=== PATIENT | male | born 1970 | race Hispanic/Latino ===

== ENCOUNTER 2017-12-29 17:07 | Emergency (ER) | payer SELFPAY ==
[2017-12-29] MEDS ORDERED: DiphenhydrAMINE HCL 50 MG/ML VIAL ONE (17:38)
[2017-12-29] MEDS ORDERED: EPINEPHRINE 1 MG/ML AMPULE ONE (17:38)
[2017-12-29] MEDS ORDERED: SODIUM CHLORIDE 0.9% 1000ML 1,000 ML IV ONE (17:39)
[2017-12-29] MEDS ORDERED: METHYLPREDNISOLONE SOD SUCC 125MG/2ML VIAL ONE (17:39)
[2017-12-29] MEDS ORDERED: FAMOTIDINE/PF 20 MG/2 ML VIAL IV ONE (17:39)
== END 2017-12-29 19:34 | disposition home or self-care (01) ==
LOC: EDH 17:07
DX: T78.40XA Allergy, unspecified, initial encounter (principal); I10 Essential (primary) hypertension; Z88.0 Allergy status to penicillin; Z87.898 Personal history of other specified conditions; Z87.891 Personal history of nicotine dependence; X58.XXXA Exposure to other specified factors, initial encounter
CPT/HCPCS: 96372; 96374; 96375; 99284; J0171; J1200; J2930; J3490; J7030

== ENCOUNTER 2018-03-29 19:17 | Emergency (ER) | payer OTHER ==
[2018-03-29] MEDS ORDERED: DiphenhydrAMINE HCL 50 MG/ML VIAL ONE (19:47)
[2018-03-29] MEDS ORDERED: DEXAMETHASONE SOD PHOSPHATE 10MG/ML 1ML VIAL ONE (19:47)
[2018-03-29] MEDS ORDERED: SODIUM CHLORIDE 0.9% 500ML 500 ML IV ONE (19:48)
== END 2018-03-29 21:14 | disposition home or self-care (01) ==
LOC: EDH 19:17
DX: T78.49XA Other allergy, initial encounter (principal); I10 Essential (primary) hypertension; Z88.0 Allergy status to penicillin; Z91.010 Allergy to peanuts; Z87.891 Personal history of nicotine dependence; Z79.899 Other long term (current) drug therapy; X58.XXXA Exposure to other specified factors, initial encounter
CPT/HCPCS: 96374; 96375; 99284; J1100; J1200; J7040

== ENCOUNTER 2020-09-20 19:27 | Emergency (ER) | payer SELFPAY ==
[2020-09-20] MEDS ORDERED: PREDNISONE 20 MG TABLET ONE (20:27)
[2020-09-20] MEDS ORDERED: DiphenhydrAMINE HCL 50 MG/ML VIAL ONE (20:27)
== END 2020-09-20 20:33 | disposition home or self-care (01) ==
LOC: EDH 19:27
DX: L50.0 Allergic urticaria (principal); E11.9 Type 2 diabetes mellitus without complications; I10 Essential (primary) hypertension; E78.00 Pure hypercholesterolemia, unspecified; I25.2 Old myocardial infarction; Z88.0 Allergy status to penicillin; Z91.010 Allergy to peanuts; Z79.899 Other long term (current) drug therapy
CPT/HCPCS: 96372; 99283; J1200

== ENCOUNTER 2020-10-10 21:55 | Emergency (ER) | payer SELFPAY ==
[2020-10-10] MEDS ORDERED: FAMOTIDINE 20MG TAB 20 MG TAB ONE (22:10)
[2020-10-10] MEDS ORDERED: DIPHENHYDRAMINE HCL 25 MG CAPSULE ONE (22:11)
[2020-10-10] MEDS ORDERED: METHYLPREDNISOLONE SOD SUCC 125MG/2ML VIAL ONE (22:22)
== END 2020-10-10 23:07 | disposition home or self-care (01) ==
LOC: EDH 21:55
DX: L50.9 Urticaria, unspecified (principal); E11.9 Type 2 diabetes mellitus without complications; I10 Essential (primary) hypertension; I25.2 Old myocardial infarction; Z88.0 Allergy status to penicillin; Z91.010 Allergy to peanuts
CPT/HCPCS: 82948; 96372; 99283; J2930; Q0163

== ENCOUNTER 2022-03-16 18:34 | Emergency (ER) | payer OTHER ==
[~2022-03-16] VITALS: Ht 170.2 cm; Wt 113.4 kg
[~2022-03-16 18:34] MED LIST: PRED20TA3 PO
[2022-03-16 18:40] VITALS: BP 176/87
[2022-03-16] MEDS ORDERED: SOLU-MEDROL 125MG VIAL IVP ONE (20:30)
[2022-03-16] MEDS ORDERED: DiphenhydrAMINE HCL 50 MG/ML VIAL IV ONE (20:30)
[2022-03-16] MEDS ORDERED: FAMOTIDINE 20MG VIAL IV ONE (20:30)
[2022-03-16] MEDS ORDERED: 0.9%NACL 1000ML 1,000 ML IV ONE (20:30)
[2022-03-16] MEDS ORDERED: FAMO-136 PO (22:19)
[2022-03-16] MEDS ORDERED: PRED20TA3 PO (22:19)
[2022-03-16] MEDS ORDERED: DIPH25 PO (22:19)
== END 2022-03-16 22:29 | disposition home or self-care (01) ==
LOC: EDH 18:34
DX: T78.40XA Allergy, unspecified, initial encounter (principal); E11.9 Type 2 diabetes mellitus without complications; I10 Essential (primary) hypertension; I25.2 Old myocardial infarction; Z88.0 Allergy status to penicillin; Z91.010 Allergy to peanuts; Z79.899 Other long term (current) drug therapy; X58.XXXA Exposure to other specified factors, initial encounter
CPT/HCPCS: 99284; 96374; 96375; 96361; J1200; J3490; J7030; J2930

== ENCOUNTER 2022-07-17 14:40 | Emergency (ER) | payer OTHER ==
[~2022-07-17] VITALS: Ht 170.2 cm; Wt 108.9 kg
[~2022-07-17 14:40] MED LIST changes: +DIPH-1242 PO; +FAMO-136 PO; +LORA10TA7 PO; +PANT40TA55 PO; +PRED5TAB PO
[2022-07-17] MEDS ORDERED: LABETALOL HCL 100 MG TABLET PO ONE (17:30)
[2022-07-17 18:00] VITALS: BP 162/92
== END 2022-07-17 18:06 | disposition home or self-care (01) ==
LOC: EDH 14:45
DX: B34.9 Viral infection, unspecified (principal); Z20.822 Contact with and (suspected) exposure to COVID-19
CPT/HCPCS: 99283; 87635; 87804 ×2; C9803

== ENCOUNTER 2022-10-28 22:04 | Emergency (ER) | payer OTHER ==
[~2022-10-28] VITALS: Ht 170.2 cm; Wt 113.4 kg
[2022-10-28 22:36] LABS: BASOPHILS % (AUTO) 0.5 % (0.0-5.0); EOSINOPHILS % (AUTO) 3.2 % (0.0-8.0); HEMATOCRIT 47.7 % (42-54); LYMPHOCYTES % (AUTO) 21.3 % (21.0-51.0); MEAN CORPUSCULAR HEMOGLOBIN 33.7 pg (27.0-33.0); MEAN CORPUSCULAR HGB CONC 34.6 g/dL (32.0-36.0); MEAN CORPUSCULAR VOLUME 97.3 fL (79-99); MONOCYTES % (AUTO) 8.4 % (3.0-13.0); NEUTROPHILS % (AUTO) 66.5 % (40.0-77.0); PLATELET COUNT (AUTO) 195 K/uL (130-400); RED CELL DISTRIBUTION WIDTH 13.1 % (11.0-15.5); WHITE BLOOD COUNT (AUTO) 8.2 K/uL (4.8-10.8)
[2022-10-28 22:43] LABS: APPEARANCE,URINE CLEAR (CLEAR); BILIRUBIN,URINE NEGATIVE (NEGATIVE); COLOR,URINE YELLOW (YELLOW); GLUCOSE, URINE (UA) NEGATIVE (NEGATIVE); KETONES,URINE 10 mg/dL (NEGATIVE); LEUKOCYTE ESTERASE ,URINE NEGATIVE Leu/uL (NEGATIVE); NITRATE,URINE NEGATIVE (NEGATIVE); OCCULT BLOOD,URINE NEGATIVE (NEGATIVE); PH,URINE 5.5 (5.0-8.0); PROTEIN,URINE 10 mg/dL (NEGATIVE); UROBILINOGEN,URINE 0.2 mg/dL (0.2-1.0)
[2022-10-28 22:45] LABS: CREATININE 0.9 mg/dL (0.5-1.5); POTASSIUM 3.4 mmol/L (3.5-5.1)
[2022-10-28 22:55] LABS: ALBUMIN 3.6 g/dL (3.5-5.0); TOTAL PROTEIN, SERUM 7.2 g/dL (6.0-8.3)
[2022-10-28 23:05] LABS: BACTERIA,URINE RARE /HPF (None Seen); MUCUS,URINE RARE LPF (None Seen); RBC,URINE 0-1 /HPF (0-1); SQUAMOUS EPITHELIAL CELL,UR RARE /HPF (0-2)
[2022-10-29 00:41] VITALS: BP 152/82
== END 2022-10-29 02:03 | disposition home or self-care (01) ==
LOC: EDH 22:04
DX: I10 Essential (primary) hypertension (principal); R07.89 Other chest pain; E11.9 Type 2 diabetes mellitus without complications; Z79.52 Long term (current) use of systemic steroids; Z88.0 Allergy status to penicillin; Z91.010 Allergy to peanuts
CPT/HCPCS: 36415; 71045; 80053; 81001; 84484; 85025; 93005

== ENCOUNTER 2022-11-15 03:30 | Emergency (ER) | payer OTHER ==
[~2022-11-15] VITALS: Ht 170.2 cm; Wt 113.4 kg
[2022-11-15] MEDS ORDERED: MORPHINE 4 MG SYG IM ONE (04:30)
[2022-11-15] MEDS ORDERED: ACETAMINOPHEN 500 MG TABLET PO ONE (04:30)
[2022-11-15] MEDS ORDERED: LIDOCAINE 5% TOPICAL PATCH TP ONE (04:30)
[2022-11-15] MEDS ORDERED: NIFEDIPINE 10 MG CAP PO ONE (06:00)
[2022-11-15] MEDS ORDERED: IBUP-2070 PO (06:33)
[2022-11-15] MEDS ORDERED: ACET-2079 PO (06:33)
[2022-11-15 06:36] LABS: BASOPHILS % (AUTO) 0.7 % (0.0-5.0); EOSINOPHILS % (AUTO) 6.8 % (0.0-8.0); HEMATOCRIT 52.9 % (42-54); LYMPHOCYTES % (AUTO) 31.5 % (21.0-51.0); MEAN CORPUSCULAR HEMOGLOBIN 33.3 pg (27.0-33.0); MEAN CORPUSCULAR HGB CONC 33.1 g/dL (32.0-36.0); MEAN CORPUSCULAR VOLUME 100.8 fL (79-99); MONOCYTES % (AUTO) 9.1 % (3.0-13.0); NEUTROPHILS % (AUTO) 51.5 % (40.0-77.0); PLATELET COUNT (AUTO) 259 K/uL (130-400); RED BLOOD CELL COUNT(AUTO) 5.25 MIL/uL (4.50-6.20); WHITE BLOOD COUNT (AUTO) 7.7 K/uL (4.8-10.8)
[2022-11-15 06:51] LABS: ALBUMIN 3.8 g/dL (3.5-5.0); POTASSIUM 3.8 mmol/L (3.5-5.1); TOTAL PROTEIN, SERUM 7.8 g/dL (6.0-8.3)
[2022-11-15 06:58] VITALS: BP 161/87
[2022-11-15] MEDS ORDERED: MORPHINE 2 MG SYG IVP ONE (07:00)
== END 2022-11-15 07:45 | disposition home or self-care (01) ==
LOC: EDH 03:30
DX: G58.8 Other specified mononeuropathies (principal); M54.50 Low back pain, unspecified; I16.0 Hypertensive urgency; E11.9 Type 2 diabetes mellitus without complications; Z79.899 Other long term (current) drug therapy; Z88.0 Allergy status to penicillin; Z91.010 Allergy to peanuts
CPT/HCPCS: 99284; 96374; 84484; 80053; 85025; 36415; 93005; 96372; J2270

== ENCOUNTER 2023-10-11 02:02 | Emergency (ER) | payer OTHER ==
[~2023-10-11] VITALS: Ht 170.2 cm; Wt 125.6 kg
[~2023-10-11 02:02] MED LIST changes: +ACET-2079 PO; +IBUP-2070 PO
[2023-10-11 02:27] LABS: BASOPHILS # (AUTO) 0.03 K/uL (0.00-0.20); BASOPHILS % (AUTO) 0.2 % (0.0-5.0); EOSINOPHILS # (AUTO) 0.15 K/uL (0.00-0.70); HEMATOCRIT 36.5 % (42-54); IMMATURE GRANULOCYTE ABSOLUTE 0.08 K/uL (0-1); LYMPHOCYTES # (AUTO) 1.4 K/uL (1.0-4.8); LYMPHOCYTES % (AUTO) 9.2 % (21.0-51.0); MEAN CORPUSCULAR HGB CONC 33.7 g/dL (32.0-36.0); MEAN CORPUSCULAR VOLUME 95.1 fL (79-99); MONOCYTES # (AUTO) 1.3 K/uL (0.1-1.0); MONOCYTES % (AUTO) 8.3 % (3.0-13.0); NEUTROPHILS # (AUTO) 12.3 K/uL (1.8-7.7); NEUTROPHILS % (AUTO) 80.8 % (40.0-77.0); PLATELET COUNT (AUTO) 218 K/uL (130-400); RED BLOOD CELL COUNT(AUTO) 3.84 MIL/uL (4.50-6.20); RED CELL DISTRIBUTION WIDTH 13.2 % (11.0-15.5); WHITE BLOOD COUNT (AUTO) 15.2 K/uL (4.8-10.8)
[2023-10-11 02:32] LABS: RAPID GROUP A STREP negative (NEGATIVE)
[2023-10-11 02:33] LABS: CREATININE 1.3 mg/dL (0.5-1.3); POTASSIUM 4.1 mmol/L (3.5-5.1)
[2023-10-11 02:38] LABS: APPEARANCE,URINE CLEAR (CLEAR); BILIRUBIN,URINE NEGATIVE (NEGATIVE); COLOR,URINE YELLOW (YELLOW); GLUCOSE, URINE (UA) NEGATIVE (NEGATIVE); KETONES,URINE NEGATIVE (NEGATIVE); LEUKOCYTE ESTERASE ,URINE NEGATIVE Leu/uL (NEGATIVE); NITRATE,URINE NEGATIVE (NEGATIVE); OCCULT BLOOD,URINE NEGATIVE (NEGATIVE); PH,URINE 5.5 (5.0-8.0); PROTEIN,URINE 20 mg/dL (NEGATIVE)
[2023-10-11 02:38] LABS: ALBUMIN 3.2 g/dL (3.5-5.0); BILIRUBIN,TOTAL 0.5 mg/dL (0.2-1.0); TOTAL PROTEIN, SERUM 7.6 g/dL (6.0-8.3)
[2023-10-11 02:39] LABS: SARS-CoV-2, RNA, NAAT NEGATIVE SARS CoV-2 (NEGATIVE)
[2023-10-11 02:39] LABS: ADD UA MICROSCOPIC YES
[2023-10-11 02:42] LABS: INFLUENZA TYPE A Negative For Type A (NEGATIVE); INFLUENZA TYPE B Negative For Type B (NEGATIVE)
[2023-10-11 02:45] LABS: BACTERIA,URINE FEW /HPF (None Seen); MUCUS,URINE RARE LPF (None Seen); RBC,URINE 0-1 /HPF (0-1); SQUAMOUS EPITHELIAL CELL,UR RARE /HPF (0-2)
[2023-10-11] MEDS: DIPHENHYDRAMINE HCL 25 MG CAPSULE PO ONE (02:54)
[2023-10-11 02:55] VITALS: PULSE 85; RESP 18
[2023-10-11] MEDS: IPRATROPIUM/ALBUTEROL SULFATE 3 ML SOLUTION IH ONE (02:55)
[2023-10-11] MEDS ORDERED: IBUP-1493 PO (03:58)
[2023-10-11] MEDS ORDERED: LORA-868 PO (03:58)
[2023-10-11] MEDS ORDERED: ALBUHFA IH (03:58)
[2023-10-11] MEDS ORDERED: ACET-66 PO (03:58)
[2023-10-11] MEDS ORDERED: NAPHAOS OD (03:58)
[2023-10-11 04:03] VITALS: BP 142/82; PULSE 92; RESP 20; O2SAT 98
== END 2023-10-11 04:05 | disposition home or self-care (01) ==
LOC: EDH 02:02
DX: B34.9 Viral infection, unspecified (principal); I10 Essential (primary) hypertension; E11.9 Type 2 diabetes mellitus without complications; E78.00 Pure hypercholesterolemia, unspecified; Z20.822 Contact with and (suspected) exposure to COVID-19; Z79.899 Other long term (current) drug therapy; Z88.0 Allergy status to penicillin; Z98.890 Other specified postprocedural states; Z91.010 Allergy to peanuts
CPT/HCPCS: 99284; 71045; 87635; 80053; 85025; 87880; 87804 ×2; 81001; 36415; 94640; Q0163

== ENCOUNTER 2024-06-27 10:12 | Emergency (ER) | payer SELFPAY ==
[~2024-06-27] VITALS: Ht 170.2 cm; Wt 140.6 kg
[~2024-06-27 10:12] MED LIST changes: +ACET-66 PO; +ALBUHFA IH; +IBUP-1493 PO; +LORA-868 PO; +NAPHAOS OD
--- NOTE | 2024-06-27 10:47 | ERN ---
ED Note History of Present Illness Stated Complaint: ALLERGIC REACTION Chief Complaint: Allergic Reaction Time Seen by MD: 10:13 Dictation: Patient is a 54-year-old male with a past medical history of hypercholesterolemia, hypertension, diabetes type 2, anxiety, and depression who presents to the ED due to an allergic reaction from exposure to peanuts. This is a known allergy that the patient usually manages with prednisone but he did not have any at home. Patient has generalized hives but denies any chest pain, shortness of breath, nausea, or vomiting. Patient denies any difficulty swallowing or pressure. Allergies: Coded Allergies: Penicillins (Unverified Allergy, Unknown, 08/17/13) peanut (Unverified Allergy, Unknown, 09/20/20) Home Meds Active Scripts Naphazoline HCl/Phenir Mal (Naphcon-A Ophth Soln) 0.025 %-0.3 % Opsol, 2 DROP OD Q4HPRN PRN for drainage, #1 BOTTLE Prov:MIRNA BURGOS MD 10/11/23 Albuterol Sulfate (Ventolin Hfa/Proventil Hfa/Proair Hfa) 90 Mcg Puff, 2 PUFF IH Q4H PRN for cough/congestion, #1 INH Prov:MIRNA BURGOS MD 10/11/23 Ibuprofen (Motrin/Advil) 800 Mg Tab, 800 MG PO Q6HPRN PRN for fever/pain, #15 TAB Prov:MIRNA BURGOS MD 10/11/23 Loratadine/Pseudoephedrine (Claritin-D 24 Hour Tablet) 10 Mg-240 Mg Tab.er.24h, 1 EACH PO DAILY, #10 TAB Prov:MIRNA BURGOS MD 10/11/23 Acetaminophen (Acetaminophen) 500 Mg Tablet, 1000 MG PO Q6HPRN PRN for fever/ pain, #30 TAB Prov:MIRNA BURGOS MD 10/11/23 Acetaminophen with Codeine (Acetaminophen-Cod #3 Tablet) 1 Each Tablet, 1 TAB PO Q6H PRN for SEVERE PAIN (7-10), #15 TAB Prov:COURTNEY ALEXANDER MD 11/15/22 Ibuprofen (Ibuprofen) 600 Mg Tablet, 600 MG PO Q6H PRN for PAIN, #30 TAB Prov:COURTNEY ALEXANDER MD 11/15/22 Loratadine (Loratadine) 10 Mg Tablet, 10 MG PO DAILY for 30 Days, #30 TAB Prov:ANGELICA HUNG MD 03/30/22 Pantoprazole Sodium (Protonix) 40 Mg Ectab, 40 MG PO DAILY for 30 Days, #30 TAB.EC Prov:ANGELICA HUNG MD 03/30/22 Prednisone (Prednisone) 5 Mg Tablet, 5 MG PO BID for 7 Days, #14 TAB Prov:ANGELICA HUNG MD 03/30/22 Famotidine (Pepcid) 20 Mg Tablet, 20 MG PO BID, #30 TAB Prov:ANTONINO ROBLEDO 03/16/22 Diphenhydramine HCl (Benadryl) 25 Mg Cap, 25 MG PO Q6HPRN PRN for RASH, #30 CAP Prov:ANTONINO ROBLEDO 03/16/22 Prednisone (Prednisone) 20 Mg Tablet, 1 TAB PO AD for 6 Days, #14 TAB 0 Refills TAKE 1 TAB BY MOUTH THREE TIMES PER DAY X3 DAYS, THEN TAKE 1 TAB BY MOUTH TWICE A DAY X2 DAYS, THEN TAKE 1 TAB BY MOUTH ONCE A DAY X1 DAY. Prov:ANTONINO ROBLEDO 03/16/22 Prednisone (Prednisone) 20 Mg Tablet, 1 TAB PO AD for 3 Days, #6 TAB 0 Refills TAKE 1 TAB BY MOUTH BID for up to 3 days. Stop when hives resolve Prov:VAN DAVIDSON MD 07/30/21 Past Medical History Past Medical History: Anxiety, Depression, Diabetes-Type II, High Cholesterol, Hypertension Additional Past Medical Hx: COLITIS Surgical History: None Surgical History Other: HEART CATH Family History: HTN Social History: ETOH, Lives with family Review of System Dictation Constitutional-no chills, weight loss/gain, fever Eyes-no injury, pain, redness and discharge ENT-no injury, pain, swelling Cardiovascular no chest pain, palpitations, edema Respiratory no shortness of breath, cough, wheezing Abdomen/GI-no abdominal pain, diarrhea, constipation, vomiting, nausea Back no injury and pain Genitourinary no injury, bleeding and discharge Musculoskeletal/extremities no injury, deformity Skin no rash, discoloration. Generalized itching due to hives Neuro-no headache, weakness, numbness, tingling, seizures, tremors Psych-no suicidal ideation, homicidal ideation, hallucinations, depression, anxiety, memory loss Initial Vital Sign VS Vital Signs Date Time Temp Pulse Resp B/P (MAP) Pulse Ox O2 Delivery O2 Flow Rate FiO2 06/27/24 10:12 99.1 84 20 184/114 97 Room Air 0 Physical Exam Dictation VITAL SIGNS: Reviewed. GENERAL APPEARANCE: Alert, oriented x3, no acute distress, obese. HEAD AND FACE: Non-traumatic. EYES: PERRL, pink conjunctivas, eyelid no trauma, anterior chamber clear. EARS: Pinnas intact and no signs of trauma or erythema. Ear canals clear and no discharge. TMs no erythema. NOSE: No discharge, no bleeding. OROPHARYNX: Mouth normal, teeth no caries, tongue pink. Pharynx clear, no erythema. Tonsils no exudates, no abscesses noted. Mucous membrane moist. NECK: Supple, non-tender, no thyromegaly, no masses, no JVD, no bruits. BREAST: Deferred. CHEST: No tenderness, no crepitus, no paradoxical movement, no retractions. LUNGS: Clear, well-ventilated, symmetric, no rales, no wheezing, no rhonchi, no stridor, good breath sounds bilaterally. HEART: Regular rate, regular rhythm, no murmur, no gallops. VASCULAR: No peripheral edema. ABDOMEN: Soft, positive bowel sounds, nondistended, no guarding, nontender, no rebound, no masses no hepatomegaly, no splenomegaly, no Caldwell's sign, no hernias. RECTAL: Swelling, lesion, possible pilonidal cyst GENITAL: Deferred. NEUROLOGICAL: Normal speech, gross motor function intact, gross sensory function intact. MUSCULOSKELETAL: Neck nontender, full range of motion, back nontender, full range of motion. EXTREMITIES: Nontender, full range of motion. SKIN: Color pink, dry, no turgor, no rash, no lacerations, no abrasions, no contusions. Urticaria on bilateral armpits, chest. LYMPHATICS: Deferred. ED Course ED Course Orders Procedure Category Date Status Time Methylprednisolone PHA 06/27/24 Complete Succ 125mg (Solu-Medr 11:00 Famotidine 20mg Vial PHA 06/27/24 Complete (Pepcid 20mg Vial) 11:00 0.9% Nacl 500ml PHA 06/27/24 In Process Iv.Soln (Ns 500ml 11:00 Methylprednisolone PHA 06/27/24 Complete Succ 125mg (Solu-Medr 12:30 Current Medications Medications (Trade) Dose Ordered Sig/Grecia Route PRN Reason Start Time Stop Time Status Last Admin Dose Admin Famotidine (Pepcid 20mg Vial) 20 mg ONCE ONCE IV 06/27/24 11:00 06/27/24 11:01 DC 06/27/24 12:28 Methylprednisolone Sodium Succinate (Solu-medROL 125MG) 125 mg ONCE ONCE IVP 06/27/24 11:00 06/27/24 10:37 DC Methylprednisolone Sodium Succinate (Solu-medROL 125MG) 125 mg ONCE ONCE IVP 06/27/24 12:30 06/27/24 12:31 DC 06/27/24 12:32 Sodium Chloride 660 ml @ 220 mls/hr ONCE ONCE IV 06/27/24 11:00 06/27/24 13:59 06/27/24 12:28 Vital Signs Date Time Temp Pulse Resp B/P (MAP) Pulse Ox O2 Delivery O2 Flow Rate FiO2 06/27/24 10:12 99.1 84 20 184/114 97 Room Air 0 Medical Decision Making MDM MDM INITIAL IMPRESSION Initial history and physical concerning for allergic reaction due from exposure to peanuts Contributing medical problems: History of peanut allergy I have reviewed the triage nursing notes and vital signs. Initial plan: Monitoring of symptoms DATA REVIEW I have reviewed additional NN, repeat VS, and monitoring where indicated. Heart rate, blood pressure, and O2 saturation are acceptable. ED COURSE Interventions: Steroid, fluids, Pepcid Reassessment: DISPOSITION Final diagnostic impression: allergic reaction due from exposure to peanuts I discussed my findings, clinical impression and treatment recommendations with the patient. My final plan for disposition was made based upon -mild risk of complications and potential morbidity of the patient's condition. -Discussion with the patient regarding management options. Patient will be discharged and advised to follow up with PCP as needed DX & DISP Disposition: Discharge Departure Impression: Primary Impression: Acute allergic reaction Additional Impression: Acute urticaria Condition: Stable Scripts Prednisone (Prednisone) 5 Mg Tab.ds.pk 0 PO AD for 6 Days, #48 TAB 0 Refills 6 day dose pack taper Prov: ANGELICA HUNG MD 06/27/24 Additional Instructions: FOLLOW-UP WITH PRIMARY CARE PROVIDER IN 1 TO 2 DAYS. TAKE MEDICATIONS DIRECTED HERE IN THE EMERGENCY ROOM. OKAY TO CONTINUE HOME MEDICATIONS UNLESS OTHERWISE DISCUSSED DURING YOUR VISIT IN THE EMERGENCY ROOM TODAY. RETURN TO YOUR NEAREST EMERGENCY ROOM IF SYMPTOMS WORSEN OR IF THERE IS NO IMPROVEMENT. CALL 911 IF YOU NEED IMMEDIATE ASSISTANCE. TAKE TYLENOL [id number] NEEDED AND IF NO CONTRAINDICATIONS ARE PRESENT. INCREASE ORAL HYDRATION. A WOUND CULTURE OR URINE CULTURE WAS ORDERED HERE IN THE EMERGENCY ROOM DEPARTMENT PLEASE FOLLOW-UP WITH PRIMARY CARE PROVIDER AND ADVISE THEM TO GET REPEAT PORTS FROM OUR FACILITY. IF YOU HAD ANY BIBI WRAP/SPLINTS THAT WERE APPLIED HERE, PLEASE DO NOT REMOVE THEM UNTIL YOU SEE YOUR PRIMARY CARE OR SPECIALTY. Referrals: Referrals: SELF,REFERRAL (PCP) ANH WILLSON MD Time of Disposition: 12:36 I have reviewed I have reviewed the case I was present and participated in the care of this patient alongside the resident physician. I have reviewed and personally made and improve the management plan that is documented in the note by myself or the resident physician. I acknowledge full responsibility for the patient's management plan. I have examined patient I personally scribed for ANGELICA HUNG MD ([email or web address]) on 06/27/24 at 12:36. Electronically submitted by Yecenia Ellis ([email or web address]). ISAAK AMADO MD Jun 27, 2024 10:47 ANGELICA HUNG MD Jun 27, 2024 12:36
[2024-06-27] MEDS ORDERED: Solu-medROL 125MG VIAL IVP ONE (11:00)
[2024-06-27] MEDS: FAMOTIDINE 20MG VIAL IV ONE (12:28)
[2024-06-27] MEDS: NACL IV ONE (12:28)
[2024-06-27] MEDS: Solu-medROL 125MG VIAL IVP ONE (12:32)
[2024-06-27 12:54] VITALS: BP 180/90; PULSE 80; RESP 20; TEMP 98.3; O2SAT 98
[2024-06-27] MEDS ORDERED: PRED5TAB44 PO (12:57)
== END 2024-06-27 13:04 | disposition home or self-care (01) ==
LOC: EDH 10:12
DX: T78.40XA Allergy, unspecified, initial encounter (principal); L50.9 Urticaria, unspecified; E11.9 Type 2 diabetes mellitus without complications; E78.00 Pure hypercholesterolemia, unspecified; I10 Essential (primary) hypertension; Z79.52 Long term (current) use of systemic steroids; Z79.899 Other long term (current) drug therapy; Z88.0 Allergy status to penicillin; Z91.010 Allergy to peanuts; Z20.822 Contact with and (suspected) exposure to COVID-19; X58.XXXA Exposure to other specified factors, initial encounter
CPT/HCPCS: 99284; 96374; 96361; 96375; J7040; J3490; J2919

== ENCOUNTER 2024-07-11 21:22 | Emergency (ER) | payer SELFPAY ==
[~2024-07-11] VITALS: Ht 170.2 cm; Wt 136.1 kg
[~2024-07-11 21:22] MED LIST changes: +PRED5TAB44 PO
--- NOTE | 2024-07-11 21:46 | EKG ---
[facility] Test Date: 2024-07-11 Test Time: 21:40:10 Pat Name: DIONICIO BUITRAGO Department: ED Room: Gender: Security Installer: [facility] : 1970 Requested By: NING PETER Order Number: [id number] Reading MD: Enrike Lebron Measurements Intervals [place] [facility] Rate: 87 P: 60 GA: 142 QRS: 111 QRSD: 111 T: 24 QT: 376 QTc: 452 Interpretive Statements Sinus rhythm Compared to ECG 11/15/2022 05:59:59 No significant changes Electronically Signed On 07-13-2024 12:16:06 TEXTILE BAG SEWER by Enrike Lebron Please click the below link to view image of tracing.
[2024-07-11] MEDS: ondanSETRON 4MG INJ IVP ONE (21:55)
[2024-07-11] MEDS: hydrALAZine 20MG/ML VIAL IV ONE ×2 (21:55→22:43)
--- NOTE | 2024-07-11 22:06 | HMCIMG ---
CHEST 1VW CLINICAL HISTORY: sob COMPARISON: 10/11/2023 TECHNIQUE: Single view of the chest was obtained. FINDINGS: Lungs are clear. The cardiac size and mediastinum are unremarkable. The bony structures are within normal limits. IMPRESSION: No acute cardiopulmonary process identified.
[2024-07-11 22:14] LABS: BASOPHILS # (AUTO) 0.01 K/uL (0.00-0.20); BASOPHILS % (AUTO) 0.1 % (0.0-5.0); EOSINOPHILS # (AUTO) 0.19 K/uL (0.00-0.70); HEMATOCRIT 42.2 % (42-54); IMMATURE GRANULOCYTE ABSOLUTE 0.03 K/uL (0-1); LYMPHOCYTES # (AUTO) 1.5 K/uL (1.0-4.8); LYMPHOCYTES % (AUTO) 16.2 % (21.0-51.0); MEAN CORPUSCULAR HEMOGLOBIN 32.3 pg (27.0-33.0); MEAN CORPUSCULAR HGB CONC 34.4 g/dL (32.0-36.0); MONOCYTES # (AUTO) 0.7 K/uL (0.1-1.0); MONOCYTES % (AUTO) 6.9 % (3.0-13.0); NEUTROPHILS # (AUTO) 7.1 K/uL (1.8-7.7); NEUTROPHILS % (AUTO) 74.5 % (40.0-77.0); PLATELET COUNT (AUTO) 228 K/uL (130-400); RED BLOOD CELL COUNT(AUTO) 4.49 MIL/uL (4.50-6.20); RED CELL DISTRIBUTION WIDTH 13.5 % (11.0-15.5); WHITE BLOOD COUNT (AUTO) 9.5 K/uL (4.8-10.8)
[2024-07-11 22:22] LABS: CREATININE 1.3 mg/dL (0.5-1.3); POTASSIUM 3.8 mmol/L (3.5-5.1)
[2024-07-11 22:24] LABS: INR 0.99 (0.85-1.15); PROTHROMBIN TIME 11.1 SEC (9.6-11.6)
[2024-07-11 22:25] LABS: PARTIAL THROMBOPLASTIN TIME 26.8 SEC (26.3-35.5)
--- NOTE | 2024-07-11 22:34 | HMCIMG ---
CT HEAD/BRAIN W/O CONTRAST HISTORY: Headaches COMPARISON: None TECHNIQUE: Multiple sequential axial images of the head were obtained from the base of the skull through vertex. Patient was not given contrast through intravenous route. FINDINGS: The ventricles and extraventricular CSF spaces are nondilated for patient's age. There is no midline shift, mass effect or herniation. No acute intracranial bleed is seen. Visualized portion of the paranasal sinuses are grossly within normal limits. IMPRESSION: 1. No acute intracranial bleed is seen. CT was performed with one or more following dose reduction techniques: automated exposure control, adjustment of the mA and kv according to patient's size, or use of a iterative reconstruction technique.
[2024-07-11 22:36] LABS: B-TYPE NATRIURETIC PEPTIDE 11 pg/mL (0-100)
[2024-07-12] MEDS ORDERED: LOSA1TAB42 PO (00:34)
--- NOTE | 2024-07-12 00:35 | ERN ---
ED Note History of Present Illness Stated Complaint: SOB,HIGH BLOOD PRESSURE Chief Complaint: Hypertension Time Seen by MD: 21:24 Time Seen by Midlevel: 21:24 Dictation: The patient is a 54-year-old male who presents to the emergency department with complaints of elevated blood pressure, shortness of breath onset today. Patient reports he ran out of his blood pressure medication on Tuesday and has not taken it since. Reports nausea, palpitations. Denies any vomiting, chest pain other complaints. Allergies: Coded Allergies: Penicillins (Unverified Allergy, Unknown, 08/17/13) peanut (Unverified Allergy, Unknown, 09/20/20) Home Meds Active Scripts Losartan/Hydrochlorothiazide (Losartan-Hctz 100-12.5 mg Tab) 100 Mg-12.5 Mg Tablet, 1 TAB PO DAILY for 30 Days, #30 TAB 0 Refills Prov:NING PETER HYDRAULIC ASSEMBLER 07/12/24 Prednisone (Prednisone) 5 Mg Tab.ds.pk, 0 PO AD for 6 Days, #48 TAB 0 Refills 6 day dose pack taper Prov:ANGELICA HUNG MD 06/27/24 Naphazoline HCl/Phenir Mal (Naphcon-A Ophth Soln) 0.025 %-0.3 % Opsol, 2 DROP OD Q4HPRN PRN for drainage, #1 BOTTLE Prov:MIRNA BURGOS MD 10/11/23 Albuterol Sulfate (Ventolin Hfa/Proventil Hfa/Proair Hfa) 90 Mcg Puff, 2 PUFF IH Q4H PRN for cough/congestion, #1 INH Prov:MIRNA BURGOS MD 10/11/23 Ibuprofen (Motrin/Advil) 800 Mg Tab, 800 MG PO Q6HPRN PRN for fever/pain, #15 TAB Prov:MIRNA BURGOS MD 10/11/23 Loratadine/Pseudoephedrine (Claritin-D 24 Hour Tablet) 10 Mg-240 Mg Tab.er.24h, 1 EACH PO DAILY, #10 TAB Prov:MIRNA BURGOS MD 10/11/23 Acetaminophen (Acetaminophen) 500 Mg Tablet, 1000 MG PO Q6HPRN PRN for fever/pain, #30 TAB Prov:MIRNA BURGOS MD 10/11/23 Acetaminophen with Codeine (Acetaminophen-Cod #3 Tablet) 1 Each Tablet, 1 TAB PO Q6H PRN for SEVERE PAIN (7-10), #15 TAB Prov:COURTNEY ALEXANDER MD 11/15/22 Ibuprofen (Ibuprofen) 600 Mg Tablet, 600 MG PO Q6H PRN for PAIN, #30 TAB Prov:COURTNEY ALEXANDER MD 11/15/22 Loratadine (Loratadine) 10 Mg Tablet, 10 MG PO DAILY for 30 Days, #30 TAB Prov:ANGELICA HUNG MD 03/30/22 Pantoprazole Sodium (Protonix) 40 Mg Ectab, 40 MG PO DAILY for 30 Days, #30 TAB.EC Prov:ANGELICA HUNG MD 03/30/22 Prednisone (Prednisone) 5 Mg Tablet, 5 MG PO BID for 7 Days, #14 TAB Prov:ANGELICA UHNG MD 03/30/22 Famotidine (Pepcid) 20 Mg Tablet, 20 MG PO BID, #30 TAB Prov:ANTONINO ROBLEDO 03/16/22 Diphenhydramine HCl (Benadryl) 25 Mg Cap, 25 MG PO Q6HPRN PRN for RASH, #30 CAP Prov:ANTONINO ROBLEDO 03/16/22 Prednisone (Prednisone) 20 Mg Tablet, 1 TAB PO AD for 6 Days, #14 TAB 0 Refills TAKE 1 TAB BY MOUTH THREE TIMES PER DAY X3 DAYS, THEN TAKE 1 TAB BY MOUTH TWICE A DAY X2 DAYS, THEN TAKE 1 TAB BY MOUTH ONCE A DAY X1 DAY. Prov:ANTONINO ROBLEDO 03/16/22 Prednisone (Prednisone) 20 Mg Tablet, 1 TAB PO AD for 3 Days, #6 TAB 0 Refills TAKE 1 TAB BY MOUTH BID for up to 3 days. Stop when hives resolve Prov:VAN DAVIDSON MD 07/30/21 Past Medical History Past Medical History: Anxiety, Depression, Diabetes-Type II, High Cholesterol, Hypertension Additional Past Medical Hx: HX OF HEART ATTACK (2013) Surgical History: Other Surgical History Other: HEART CATH Family History: HTN Social History: ETOH, Lives with family RN Note Reviewed/Agreed w/PFSH: Yes Review of System Dictation Constitutional: Negative for fever,chills, and weight loss Eyes: Negative for injury, pain,redness, and discharge ENT: Negative for injury,pain or swelling Cardiovascular: Negative for chest pain, palpitations, breath, cough, and wheezing, positive for palpitations, elevated blood pressure Abdomen/GI: Negative for abdominal pain, vomiting, diarrhea, and constipation positive for nausea Back: Negative for injury and pain : Negative for injury, bleeding and discharge MS/Extremity: Negative for injury and deformity Skin: Negative for rash, and discoloration Neuro: Negative for headache, weakness, numbness, tingling, and seizure Psych: Negative for suicide ideation, homicidal ideation, and hallucinations Initial Vital Sign VS Vital Signs Date Time Temp Pulse Resp B/P (MAP) Pulse Ox O2 Delivery O2 Flow Rate FiO2 07/11/24 21:28 99.3 101 20 248/114 94 Room Air 07/11/24 21:57 0 21 Physical Exam Dictation Vital Signs reviewed General Appearance: Alert, oriented x 3, no acute distress, well developed, nourished. Head and Face: non-traumatic. Eyes: PERRL, pink conjunctivas, eyelid no trauma, anterior chamber with arcus senilis. Ears: Pinnas intact and no signs of trauma or erythema ear canals clear and no discharge TM no erythema Nose: No discharge, no bleeding. Oropharynx: Mouth normal, tongue pink. pharynx clear,no erythema, tonsils no exudates, no abscesses noted, mucous membrane moist Neck: Supple, non-tender, no thyromegaly, no masses, no JVD, no bruits Breast:Deferred Chest:No tenderness, no crepitus, no paradoxical movement, no retractions Lungs:Clear, well-ventilated, symmetric, no rales, no wheezing, no rhonchi, no stridor, good breath sounds bilaterally Heart: Regular rate, regular rhythm, no murmur, no gallops Vascular: no peripheral edema, Abdomen: Soft, positive bowel sounds, nondistended, no guarding, nontender, no rebound, no masses no hepatomegaly, no splenomegaly, no Caldwell's sign, no hernias. Rectal: Deferred Genital: Deferred Neurological: Normal speech, motor function intact, sensory function intact Musculoskeletal: Neck nontender, full range of motion, back nontender, full range of motion, Extremities: nontender, full range of motion Skin: Color pink, dry, no turgor, no rash, no lacerations, no abrasions, no contusions. Lymphatic: Deferred Results (Laboratory/Radiology) Laboratory/Radiology Laboratory Tests Test 07/11/24 21:55 White Blood Count 9.5 K/uL (4.8-10.8) Red Blood Count 4.49 MIL/uL (4.50-6.20) L Hemoglobin 14.5 g/dL (14.0-18.0) Hematocrit 42.2 % (42-54) Mean Corpuscular Volume 94.0 fL (79-99) Mean Corpuscular Hemoglobin 32.3 pg (27.0-33.0) Mean Corpuscular Hemoglobin Concent 34.4 g/dL (32.0-36.0) Red Cell Distribution Width 13.5 % (11.0-15.5) Platelet Count 228 K/uL (130-400) Mean Platelet Volume 9.8 fL (7.5-10.5) Immature Granulocyte % (Auto) 0.3 % (0-1) Neutrophils (%) (Auto) 74.5 % (40.0-77.0) Lymphocytes (%) (Auto) 16.2 % (21.0-51.0) L Monocytes (%) (Auto) 6.9 % (3.0-13.0) Eosinophils (%) (Auto) 2.0 % (0.0-8.0) Basophils (%) (Auto) 0.1 % (0.0-5.0) Neutrophils # (Auto) 7.1 K/uL (1.8-7.7) Lymphocytes # (Auto) 1.5 K/uL (1.0-4.8) Monocytes # (Auto) 0.7 K/uL (0.1-1.0) Eosinophils # (Auto) 0.19 K/uL (0.00-0.70) Basophils # (Auto) 0.01 K/uL (0.00-0.20) Absolute Immature Granulocyte (auto 0.03 K/uL (0-1) Nucleated Red Blood Cells 0.0 % (0.0-0.19) Prothrombin Time 11.1 SEC (9.6-11.6) Prothromb Time International Ratio 0.99 (0.85-1.15) Activated Partial Thromboplast Time 26.8 SEC (26.3-35.5) Sodium Level 140 mmol/L (136-145) Potassium Level 3.8 mmol/L (3.5-5.1) Chloride Level 103 mmol/L (101-111) Carbon Dioxide Level 27 mmol/L (21-32) Blood Urea Nitrogen 17 mg/dL (7-18) Creatinine 1.3 mg/dL (0.5-1.3) Glomerular Filtration Rate Calc 65 mL/min (>90) Random Glucose 150 mg/dL (70-105) H Total Calcium 9.1 mg/dL (8.5-10.1) Total Creatine Kinase 389 U/L (21-232) #H Troponin I High Sensitivity 16 ng/L (4-75) B-Type Natriuretic Peptide 11 pg/mL (0-100) REASON: sob ORDERING PHYSICIAN: NING PETER HYDRAULIC ASSEMBLER PROCEDURE: CXR1VW - CHEST 1VW CHEST 1VW CLINICAL HISTORY: sob COMPARISON: 10/11/2023 TECHNIQUE: Single view of the chest was obtained. FINDINGS: Lungs are clear. The cardiac size and mediastinum are unremarkable. The bony structures are within normal limits. IMPRESSION: No acute cardiopulmonary process identified. REASON: headache nausea ORDERING PHYSICIAN: NING PETER HYDRAULIC ASSEMBLER PROCEDURE: HEAD WO - CT HEAD/BRAIN W/O CONTRAST CT HEAD/BRAIN W/O CONTRAST HISTORY: Headaches COMPARISON: None TECHNIQUE: Multiple sequential axial images of the head were obtained from the base of the skull through vertex. Patient was not given contrast through intravenous route. FINDINGS: The ventricles and extraventricular CSF spaces are nondilated for patient's age. There is no midline shift, mass effect or herniation. No acute intracranial bleed is seen. Visualized portion of the paranasal sinuses are grossly within normal limits. IMPRESSION: 1. No acute intracranial bleed is seen. CT was performed with one or more following dose reduction techniques: automated exposure control, adjustment of the mA and kv according to patient's size, or use of a iterative reconstruction technique. Labs Reviewed?: Yes EKG: (+) rhythm (Sinus rhythm) EKG Comment: EKG 07/11/2024 ventricular rate 87, regular rate and rhythm, normal sinus rhythm, no STEMI ED Course ED Course Orders Procedure Category Date Status Time Cbc With Differential LAB 07/11/24 Complete 21:42 B-Type Natriuretic LAB 07/11/24 Complete Peptide 21:42 Chest 1vw RAD 07/11/24 Resulted 21:42 12 Lead Ekg Tracing- EKG 07/11/24 Resulted Technical 21:42 Creatine Kinase, Total LAB 07/11/24 Complete 21:42 Troponin I High LAB 07/11/24 Complete Sensitivity 21:42 Basic Metabolic Panel LAB 07/11/24 Complete 21:42 Ct Head/Brain W/O CT 07/11/24 Resulted Contrast 21:42 Pt And Ptt LAB 07/11/24 Complete 21:42 Hydralazine 20mg Inj PHA 07/11/24 Complete (Apresoline 20mg In 22:00 Ondansetron 4mg Inj PHA 07/11/24 Complete (Zofran 4mg Inj) 22:00 Hydralazine 20mg Inj PHA 07/11/24 Complete (Apresoline 20mg In 23:00 Current Medications Medications (Trade) Dose Ordered Sig/Grecia Route PRN Reason Start Time Stop Time Status Last Admin Dose Admin Hydralazine HCl (APRESOLine 20MG INJ) 10 mg ONCE ONCE IV 07/11/24 22:00 07/11/24 22:01 DC 07/11/24 21:55 Hydralazine HCl (APRESOLine 20MG INJ) 10 mg ONCE ONCE IV 07/11/24 23:00 07/11/24 23:01 DC 07/11/24 22:43 Ondansetron HCl (zoFRAN 4MG INJ) 4 mg ONCE ONCE IVP 07/11/24 22:00 07/11/24 22:01 DC 07/11/24 21:55 Vital Signs Date Time Temp Pulse Resp B/P (MAP) Pulse Ox O2 Delivery O2 Flow Rate FiO2 07/12/24 00:44 98.8 99 18 157/86 97 Room Air* 0 07/11/24 23:04 98.8 90 18 170/70 94 Room Air* 0 07/11/24 21:57 98.8 93 18 196/105 100 Room Air* 0 07/11/24 21:28 99.3 101 20 248/114 94 Room Air Medical Decision Making MDM The patient is a 54-year-old male who presents to the emergency department with complaints of elevated blood pressure, shortness of breath onset today. Patient reports he ran out of his blood pressure medication on Tuesday and has not taken it since. Reports nausea, palpitations. Denies any vomiting, chest pain other complaints. CBC showed no leukocytosis, no anemia, chemistry showed GFR of 65, no electrolyte imbalance, negative troponin, negative BNP, EKG unremarkable, chest x-ray and CT with no acute pathology. Patient's blood pressure improved with antihypertensives. Patient continues neurologically intact, in no acute di stress. Will be discharged to follow up with PCP. Differential diagnosis: ACS, hypertensive urgency, intracerebral hemorrhage, electrolyte imbalance Need for hospitalization: Patient does not meet criteria for hospitalization. There are no social concerns with this patient. DX & DISP Disposition: Discharge Departure Impression: Primary Impression: Elevated blood pressure reading with diagnosis of hypertension Condition: Stable Scripts Losartan/Hydrochlorothiazide (Losartan-Hctz 100-12.5 mg Tab) 100 Mg-12.5 Mg Tablet 1 TAB PO DAILY for 30 Days, #30 TAB 0 Refills Prov: NING PETER 07/12/24 Additional Instructions: Please follow up with your primary doctor in 1-2 days. Take medications as prescribed. If symptoms worsen please return to ER. FOLLOW-UP WITH PRIMARY CARE PROVIDER IN 1 TO 2 DAYS. TAKE MEDICATIONS DIRECTED HERE IN THE EMERGENCY ROOM. OKAY TO CONTINUE HOME MEDICATIONS UNLESS OTHERWISE DISCUSSED DURING YOUR VISIT IN THE EMERGENCY ROOM TODAY. RETURN TO YOUR NEAREST EMERGENCY ROOM IF SYMPTOMS WORSEN OR IF THERE IS NO IMPROVEMENT. CALL 911 IF YOU NEED IMMEDIATE ASSISTANCE. TAKE TYLENOL OR MOTRIN [id number] NEEDED AND IF NO CONTRAINDICATIONS ARE PRESENT. INCREASE ORAL HYDRATION. A WOUND CULTURE OR URINE CULTURE WAS ORDERED HERE IN THE EMERGENCY ROOM DEPARTMENT PLEASE FOLLOW-UP WITH PRIMARY CARE PROVIDER AND ADVISE THEM TO GET REPEAT PORTS FROM OUR FACILITY. IF YOU HAD ANY BIBI WRAP/SPLINTS THAT WERE APPLIED HERE, PLEASE DO NOT REMOVE THEM UNTIL YOU SEE YOUR PRIMARY CARE OR SPECIALTY. Referrals: PAU POLK (PCP) Time of Disposition: 00:33 I have reviewed the case, and I agree with, Diagnosis and Plan ATTESTATION BY PHYSICIAN I PERFORMED THE SUBSTANTIVE PORTION OF THE VISIT. I HAVE REVIEWED AND PERSONALLY MADE AND APPROVED THE MANAGEMENT PLAN THAT IS DOCUMENTED IN THE NOTE BY MYSELF FOR THE A PP. I ACKNOWLEDGED FOR RESPONSIBILITY FOR THE PATIENT'S MANAGEMENT PLAN. NING PETER Jul 12, 2024 00:35 ANGELICA HUNG MD Jul 14, 2024 19:12
[2024-07-12 00:44] VITALS: BP 157/86; PULSE 99; RESP 18; TEMP 98.8; O2SAT 97
== END 2024-07-12 00:50 | disposition home or self-care (01) ==
LOC: EDH 21:22
DX: I10 Essential (primary) hypertension (principal); E11.9 Type 2 diabetes mellitus without complications; E78.00 Pure hypercholesterolemia, unspecified; Z79.52 Long term (current) use of systemic steroids; Z79.899 Other long term (current) drug therapy; Z88.0 Allergy status to penicillin
CPT/HCPCS: 99285; 96374; 70450; 71045; 96375; 82550; 84484; 80048; 83880; 85025; 85610; 85730; 36415; 96376; 93005; J0360 ×2; J2405

== ENCOUNTER 2024-08-24 22:51 | Emergency (ER) | payer SELFPAY ==
[~2024-08-24] VITALS: Ht 170.2 cm; Wt 136.1 kg
[~2024-08-24 22:51] MED LIST changes: +LOSA1TAB42 PO
--- NOTE | 2024-08-24 23:30 | ERN ---
ED Note History of Present Illness Stated Complaint: HEADACHE Chief Complaint: Multiple Complaints Time Seen by MD: 23:04 Dictation: PATIENT IS A 54-YEAR-OLD VERY OBESE MALE WITH A HISTORY OF HYPERTENSION COMING IN TODAY WITH RINGING IN THE EARS AND A FRONTAL HEADACHE. HE STATES IT STARTED THIS MORNING WHEN HE GOT UP AND WENT TO THE REFRIGERATOR HAVE A BEER AND THEN HE SAT DOWN TO WATCH TV. HE SAID THEN THIS AFTERNOON HE STARTED NOTICED THE RINGING IN THE EARS AND SAID HE PROBABLY FELT LIKE HIS BLOOD PRESSURE WAS . HE DOES NOT HAVE A PRIMARY CARE DOCTOR HE HAS TAKEN LOSARTAN 100 MG/HCTZ 12.5 THAT HE BUYS OCCASIONALLY IN [place] HOWEVER HAS NOT TAKEN THAT IN SEVERAL MONTHS. NO CHEST PAIN NO BACK PAIN Allergies: Coded Allergies: Penicillins (Unverified Allergy, Unknown, 08/17/13) peanut (Unverified Allergy, Unknown, 09/20/20) Home Meds Active Scripts Losartan/Hydrochlorothiazide (Losartan-Hctz 100-12.5 mg Tab) 100 Mg-12.5 Mg Tablet, 1 TAB PO DAILY for 30 Days, #30 TAB 0 Refills Prov:NING PETER SENIOR ASIC DESIGN ENGINEER 07/12/24 Prednisone (Prednisone) 5 Mg Tab.ds.pk, 0 PO AD for 6 Days, #48 TAB 0 Refills 6 day dose pack taper Prov:ANGELICA HUNG MD 06/27/24 Naphazoline HCl/Phenir Mal (Naphcon-A Ophth Soln) 0.025 %-0.3 % Opsol, 2 DROP OD Q4HPRN PRN for drainage, #1 BOTTLE Prov:MIRNA BURGOS MD 10/11/23 Albuterol Sulfate (Ventolin Hfa/Proventil Hfa/Proair Hfa) 90 Mcg Puff, 2 PUFF IH Q4H PRN for cough/congestion, #1 INH Prov:MIRNA BURGOS MD 10/11/23 Ibuprofen (Motrin/Advil) 800 Mg Tab, 800 MG PO Q6HPRN PRN for fever/pain, #15 TAB Prov:MIRNA BURGOS MD 10/11/23 Loratadine/Pseudoephedrine (Claritin-D 24 Hour Tablet) 10 Mg-240 Mg Tab.er.24h, 1 EACH PO DAILY, #10 TAB Prov:MIRNA BURGOS MD 10/11/23 Acetaminophen (Acetaminophen) 500 Mg Tablet, 1000 MG PO Q6HPRN PRN for fever/pain, #30 TAB Prov:MIRNA BURGOS MD 10/11/23 Acetaminophen with Codeine (Acetaminophen-Cod #3 Tablet) 1 Each Tablet, 1 TAB PO Q6H PRN for SEVERE PAIN (7-10), #15 TAB Prov:COURTNEY ALEXANDER MD 11/15/22 Ibuprofen (Ibuprofen) 600 Mg Tablet, 600 MG PO Q6H PRN for PAIN, #30 TAB Prov:COURTNEY ALEXANDER MD 11/15/22 Loratadine (Loratadine) 10 Mg Tablet, 10 MG PO DAILY for 30 Days, #30 TAB Prov:ANGELICA HUNG MD 03/30/22 Pantoprazole Sodium (Protonix) 40 Mg Ectab, 40 MG PO DAILY for 30 Days, #30 TAB.EC Prov:ANGELICA HUNG MD 03/30/22 Prednisone (Prednisone) 5 Mg Tablet, 5 MG PO BID for 7 Days, #14 TAB Prov:ANGELICA HUNG MD 03/30/22 Famotidine (Pepcid) 20 Mg Tablet, 20 MG PO BID, #30 TAB Prov:ANTONINO ROBLEDOP 03/16/22 Diphenhydramine HCl (Benadryl) 25 Mg Cap, 25 MG PO Q6HPRN PRN for RASH, #30 CAP Prov:ANTONINO ROBLEDO 03/16/22 Prednisone (Prednisone) 20 Mg Tablet, 1 TAB PO AD for 6 Days, #14 TAB 0 Refills TAKE 1 TAB BY MOUTH THREE TIMES PER DAY X3 DAYS, THEN TAKE 1 TAB BY MOUTH TWICE A DAY X2 DAYS, THEN TAKE 1 TAB BY MOUTH ONCE A DAY X1 DAY. Prov:ANTONINO ROBLEDO 03/16/22 Prednisone (Prednisone) 20 Mg Tablet, 1 TAB PO AD for 3 Days, #6 TAB 0 Refills TAKE 1 TAB BY MOUTH BID for up to 3 days. Stop when hives resolve Prov:VAN DAVIDSON MD 07/30/21 Past Medical History Past Medical History: Anxiety, CAD, Depression, High Cholesterol, Hypertension, [place] Additional Past Medical Hx: HX OF HEART ATTACK (2013) Surgical History: None Surgical History Other: HEART CATH Family History: HTN Social History: ETOH, Lives with family RN Note Reviewed/Agreed w/PFSH: Yes Review of System Dictation CONSTITUTIONAL: NEGATIVE EXCEPT FOR HPI HEAD/FACE: NEGATIVE EXCEPT FOR HPI EENT: NEGATIVE EXCEPT FOR HPI TINNITUS RESPIRATORY: NEGATIVE EXCEPT FOR HPI GASTROINTESTINAL/ABDOMINAL: NEGATIVE EXCEPT FOR HPI GENITOURINARY: NEGATIVE EXCEPT FOR HPI MUSCULOSKELETAL: NEGATIVE EXCEPT FOR HPI INTEGUMENTARY: NEGATIVE EXCEPT FOR HPI NEUROLOGICAL/PSYCH: NEGATIVE EXCEPT FOR HPI HEADACHE HEMATOLOGIC/LYMPHATIC: NEGATIVE EXCEPT FOR HPI ALL SYSTEMS NEGATIVE, EXCEPT NOTED ABOVE. 13 POINT REVIEW OF SYSTEMS ASSESSED AND ALL NEGATIVE EXCEPT FOR ABOVE. Initial Vital Sign VS Vital Signs Date Time Temp Pulse Resp B/P (MAP) Pulse Ox O2 Delivery O2 Flow Rate FiO2 08/24/24 22:54 99.0 71 18 219/117 97 Room Air 0 08/24/24 23:40 21 Physical Exam Dictation VITAL SIGNS REVIEWED GENERAL APPEARANCE: ALERT, ORIENTED X 3, NO ACUTE DISTRESS, WELL DEVELOPED, NOURISHED. MORBID OBESITY HEAD AND FACE: NON-TRAUMATIC. EYES: PERRL, PINK CONJUNCTIVAS, EYELID NO TRAUMA, ANTERIOR CHAMBER WITH ARCUS SENILIS. EARS: PINNAS INTACT AND NO SIGNS OF TRAUMA OR ERYTHEMA EAR CANALS CLEAR AND NO DISCHARGE TM NO ERYTHEMA NOSE: NO DISCHARGE, NO BLEEDING. OROPHARYNX: MOUTH NORMAL, TONGUE PINK, PHARYNX CLEAR,NO ERYTHEMA, TONSILS NO EXUDATES, NO ABSCESSES NOTED, MUCOUS MEMBRANE MOIST NECK: SUPPLE, NON-TENDER, NO THYROMEGALY, NO MASSES, NO JVD, NO BRUITS BREAST:DEFERRED CHEST:NO TENDERNESS, NO CREPITUS, NO PARADOXICAL MOVEMENT, NO RETRACTIONS LUNGS:CLEAR, WELL-VENTILATED, SYMMETRIC, NO RALES, NO WHEEZING, NO RHONCHI, NO STRIDOR, GOOD BREATH SOUNDS BILATERALLY HEART: REGULAR RATE, REGULAR RHYTHM, NO MURMUR, NO GALLOPS VASCULAR: NO PERIPHERAL EDEMA, ABDOMEN: SOFT, POSITIVE BOWEL SOUNDS, NONDISTENDED, NO GUARDING, NONTENDER, NO REBOUND, NO MASSES NO HEPATOMEGALY, NO SPLENOMEGALY, NO HILL'S SIGN, NO HERNIAS. RECTAL: DEFERRED GENITAL: DEFERRED NEUROLOGICAL: NORMAL SPEECH, MOTOR FUNCTION INTACT, SENSORY FUNCTION INTACT MUSCULOSKELETAL: NECK NONTENDER, FULL RANGE OF MOTION, BACK NONTENDER, FULL RANGE OF MOTION, EXTREMITIES: NONTENDER, FULL RANGE OF MOTION SKIN: COLOR PINK, DRY, NO TURGOR, NO RASH, NO LACERATIONS, NO ABRASIONS, NO CONTUSIONS. LYMPHATIC: DEFERRED Results (Laboratory/Radiology) Laboratory/Radiology Laboratory Tests Test 08/24/24 23:35 08/24/24 23:37 White Blood Count 10.1 K/uL (4.8-10.8) Red Blood Count 4.65 MIL/uL (4.50-6.20) Hemoglobin 15.4 g/dL (14.0-18.0) Hematocrit 46.1 % (42-54) Mean Corpuscular Volume 99.1 fL (79-99) H Mean Corpuscular Hemoglobin 33.1 pg (27.0-33.0) H Mean Corpuscular Hemoglobin Concent 33.4 g/dL (32.0-36.0) Red Cell Distribution Width 14.0 % (11.0-15.5) Platelet Count 240 K/uL (130-400) Mean Platelet Volume 9.4 fL (7.5-10.5) Immature Granulocyte % (Auto) 0.5 % (0-1) Neutrophils (%) (Auto) 68.2 % (40.0-77.0) Lymphocytes (%) (Auto) 23.0 % (21.0-51.0) Monocytes (%) (Auto) 6.9 % (3.0-13.0) Eosinophils (%) (Auto) 1.2 % (0.0-8.0) Basophils (%) (Auto) 0.2 % (0.0-5.0) Neutrophils # (Auto) 6.9 K/uL (1.8-7.7) Lymphocytes # (Auto) 2.3 K/uL (1.0-4.8) Monocytes # (Auto) 0.7 K/uL (0.1-1.0) Eosinophils # (Auto) 0.12 K/uL (0.00-0.70) Basophils # (Auto) 0.02 K/uL (0.00-0.20) Absolute Immature Granulocyte (auto 0.05 K/uL (0-1) Nucleated Red Blood Cells 0.0 % (0.0-0.19) Sodium Level 143 mmol/L (136-145) Potassium Level 3.9 mmol/L (3.5-5.1) Chloride Level 104 mmol/L (101-111) Carbon Dioxide Level 31 mmol/L (21-32) Blood Urea Nitrogen 18 mg/dL (7-18) Creatinine 1.3 mg/dL (0.5-1.3) Glomerular Filtration Rate Calc 65 mL/min (>90) Random Glucose 105 mg/dL (70-105) Total Calcium 8.7 mg/dL (8.5-10.1) Total Creatine Kinase 126 U/L (21-232) # Troponin I High Sensitivity 14 ng/L (4-75) B-Type Natriuretic Peptide 63 pg/mL (0-100) Urine Color LIGHT-YELLOW (YELLOW) Urine Appearance CLEAR (CLEAR) Urine pH 5.0 (5.0-8.0) Urine Specific George 1.025 (1.001-1.031) Urine Protein 10 mg/dL (NEGATIVE) H Urine Glucose (UA) NEGATIVE mg/dL (NEGATIVE) Urine Ketones NEGATIVE mg/dL (NEGATIVE) Urine Occult Blood NEGATIVE (NEGATIVE) Urine Nitrate NEGATIVE (NEGATIVE) Urine Bilirubin NEGATIVE mg/dL (NEGATIVE) Urine Urobilinogen 0.2 mg/dL (0.2-1.0) Urine Leukocyte Esterase NEGATIVE Marvin/uL Urine RBC 0-1 /HPF (0-1) Urine WBC 2-5 /HPF (0-1) H Urine Bacteria None /HPF (None Seen) Labs Reviewed?: Yes EKG Comment: EKG NORMAL SINUS RHYTHM/HEART RATE 70/AXIS NORMAL/NO ECTOPY ED Course ED Course Orders Procedure Category Date Status Time 12 Lead Ekg Tracing- EKG 08/24/24 Logged Technical 22:59 Vital Signs Per CPOE 08/24/24 Transmitted Routine 23:00 B-Type Natriuretic LAB 08/24/24 Complete Peptide 23:00 Chest 1vw RAD 08/24/24 Taken 23:00 Oxygen By Nc/Pulse Ox CPOE 08/24/24 Transmitted 23:00 Maintain Iv CPOE 08/24/24 Transmitted 23:00 Iv Insertion CPOE 08/24/24 Transmitted 23:00 Cardiac Monitoring CPOE 08/24/24 Transmitted 23:00 Pulse Oximetry With CPOE 08/24/24 Transmitted Vs And Prn 23:00 Cbc With Differential LAB 08/24/24 Complete 23:00 Activity: Br W/Brp CPOE 08/24/24 Transmitted With Assist 23:00 Creatine Kinase, Total LAB 08/24/24 Complete 23:00 Troponin I High LAB 08/24/24 Complete Sensitivity 23:00 Urinalysis Profile LAB 08/24/24 Complete 23:00 Basic Metabolic Panel LAB 08/24/24 Complete 23:00 Clonidine Hcl 0.3 Mg PHA 08/24/24 Complete Tablet (Catapres 0. 23:30 Current Medications Medications (Trade) Dose Ordered Sig/Grecia Route PRN Reason Start Time Stop Time Status Last Admin Dose Admin Clonidine HCl (CATApres 0.3 MG TAB) 0.3 mg ONCE ONCE PO 08/24/24 23:30 08/24/24 23:31 DC 08/24/24 23:39 Vital Signs Date Time Temp Pulse Resp B/P (MAP) Pulse Ox O2 Delivery O2 Flow Rate FiO2 08/25/24 01:00 98.4 60 18 126/81 96 Room Air* 0 21 08/25/24 00:50 63 18 166/101 96 Room Air* 0 21 08/25/24 00:16 63 17 181/110 98 Room Air* 0 21 08/24/24 23:40 64 18 190/116 99 Room Air* 0 21 08/24/24 23:39 63 190/116 08/24/24 22:54 99.0 71 18 219/117 97 Room Air 0 0105/REPEAT BLOOD PRESSURE 126/81 PATIENT WILL BE DISCHARGED HOME WITH A UNCONTROLLED HYPERTENSION/MORBID OBESITY WE WILL BE PRESCRIBED CLONIDINE 0.2 P.O. B.I.D. AND TOLD TO SEE HIS PRIMARY CARE DOCTOR HEART Score Response (Comments) Value History: Low suspicion (0) 0 Age: 45-65yrs (+1) 1 Risk Factors: 1-2 risk factors (+1) 1 Initial Troponin: Normal limit (0) 0 Total 2 Medical Decision Making MDM MDM: DIFFERENTIAL DIAGNOSIS: ACS/AMI/ELECTROLYTE IMBALANCE/DEHYDRATION/UNCONTROLLED HYPERTENSION/MORBID OBESITY RATIONALE: TESTS CONSIDERED AND ORDERED SECONDARY TO SHARED DECISION MAKING INCLUDE: EKG/LABS PREVIOUS OUTSIDE RECORDS REVIEWED: OLD ER VISITS. RISK OF COMPLICATION AND/OR MORBIDITY OR MORTALITY OF PATIENT MANAGEMENT: NONE MEDICATIONS-PER MEDICATION RECONCILIATION NEED FOR HOSPITALIZATION: PATIENT DOES NOT MEET CRITERIA FOR HOSPITALIZATION. NO NEED FOR EMERGENCY MAJOR/MINOR SURGERY: NO THERE ARE NO SOCIAL CONCERNS WITH THIS PATIENT. PRESCRIPTION DRUG MANAGEMENT CLONIDINE 0.2 P.O. B.I.D. PRESCRIPTIONS WILL INCLUDE SYMPTOMATIC CARE PATIENT'S PRIOR EXTERNAL MEDICAL RECORDS FROM OTHER ER VISITS WERE REVIEWED BY ME INDICATED. PRIOR TESTING AND RESULTS FROM PREVIOUS VISITS WERE REVIEWED. PRIOR TESTS WERE TAKEN INTO ACCOUNT WITH MEDICAL DECISION MAKING AND RESOURCE UTILIZATION, INDEPENDENT HISTORIAN/HISTORIANS WERE USED TO OBTAIN COMPLETE MEDICAL HISTORY. I INDEPENDENTLY INTERPRETED THE TEST THAT WERE PERFORMED, RESULTS WERE REVIEWED BY ME AND CONSIDERED FINDINGS ON RADIOLOGY IF ORDERED. MEDICAL MANAGEMENT AND EXAMINATION INTERPRETATION DISCUSSIONS WERE HAD BY ME WITH OTHER QUALIFIED HEALTHCARE PROFESSIONALS INDICATED FOR THE PATIENT'S CARE. DX & DISP Disposition: Discharge Departure Impression: Primary Impression: Uncontrolled hypertension Additional Impression: Morbid obesity Condition: Stable Scripts Clonidine HCl (Clonidine HCl) 0.2 Mg Tablet 1 TAB PO BID for 30 Days, #60 TAB 0 Refills Prov: SHANIA CASTRO NP 08/25/24 Additional Instructions: FOLLOW-UP WITH PRIMARY CARE PROVIDER IN 1 TO 2 DAYS. TAKE MEDICATIONS DIRECTED HERE IN THE EMERGENCY ROOM. OKAY TO CONTINUE HOME MEDICATIONS UNLESS OTHERWISE DISCUSSED DURING YOUR VISIT IN THE EMERGENCY ROOM TODAY. RETURN TO YOUR NEAREST EMERGENCY ROOM IF SYMPTOMS WORSEN OR IF THERE IS NO IMPROVEMENT. CALL 911 IF YOU NEED IMMEDIATE ASSISTANCE. TAKE TYLENOL OR MOTRIN [id number] NEEDED AND IF NO CONTRAINDICATIONS ARE PRESENT. INCREASE ORAL HYDRATION. A WOUND CULTURE OR URINE CULTURE WAS ORDERED HERE IN THE EMERGENCY ROOM DEPARTMENT PLEASE FOLLOW-UP WITH PRIMARY CARE PROVIDER AND ADVISE THEM TO GET REPEAT PORTS FROM OUR FACILITY. IF YOU HAD ANY BIBI WRAP/SPLINTS THAT WERE APPLIED HERE, PLEASE DO NOT REMOVE THEM UNTIL YOU SEE YOUR PRIMARY CARE OR SPECIALTY. TAKE CLONIDINE DIRECTED FOR BLOOD PRESSURE. FOLLOW UP WITH YOUR DOCTOR IN THE NEXT 1-2 DAYS. Referrals: [facility]U [facility]K (PCP) Time of Disposition: 01:06 I have reviewed the case, and I agree with, Diagnosis and Plan SAHNIA CASTRO NP Aug 24, 2024 23:30
[2024-08-24] MEDS: cloNIDine HCL 0.3 MG TABLET PO ONE (23:39)
[2024-08-24 23:42] LABS: BASOPHILS # (AUTO) 0.02 K/uL (0.00-0.20); BASOPHILS % (AUTO) 0.2 % (0.0-5.0); EOSINOPHILS # (AUTO) 0.12 K/uL (0.00-0.70); EOSINOPHILS % (AUTO) 1.2 % (0.0-8.0); HEMATOCRIT 46.1 % (42-54); IMMATURE GRANULOCYTE ABSOLUTE 0.05 K/uL (0-1); LYMPHOCYTES # (AUTO) 2.3 K/uL (1.0-4.8); MEAN CORPUSCULAR HEMOGLOBIN 33.1 pg (27.0-33.0); MEAN CORPUSCULAR HGB CONC 33.4 g/dL (32.0-36.0); MEAN CORPUSCULAR VOLUME 99.1 fL (79-99); MONOCYTES # (AUTO) 0.7 K/uL (0.1-1.0); MONOCYTES % (AUTO) 6.9 % (3.0-13.0); NEUTROPHILS # (AUTO) 6.9 K/uL (1.8-7.7); NEUTROPHILS % (AUTO) 68.2 % (40.0-77.0); PLATELET COUNT (AUTO) 240 K/uL (130-400); RED BLOOD CELL COUNT(AUTO) 4.65 MIL/uL (4.50-6.20); WHITE BLOOD COUNT (AUTO) 10.1 K/uL (4.8-10.8)
[2024-08-24 23:47] LABS: APPEARANCE,URINE CLEAR (CLEAR); BILIRUBIN,URINE NEGATIVE (NEGATIVE); COLOR,URINE LIGHT-YELLOW (YELLOW); GLUCOSE, URINE (UA) NEGATIVE (NEGATIVE); KETONES,URINE NEGATIVE (NEGATIVE); LEUKOCYTE ESTERASE ,URINE NEGATIVE Leu/uL (NEGATIVE); NITRATE,URINE NEGATIVE (NEGATIVE); OCCULT BLOOD,URINE NEGATIVE (NEGATIVE); PROTEIN,URINE 10 mg/dL (NEGATIVE); UROBILINOGEN,URINE 0.2 mg/dL (0.2-1.0)
[2024-08-24 23:49] LABS: ADD UA MICROSCOPIC YES
[2024-08-24 23:50] LABS: MUCUS,URINE RARE LPF (None Seen); RBC,URINE 0-1 /HPF (0-1)
[2024-08-24 23:56] LABS: CREATININE 1.3 mg/dL (0.5-1.3); POTASSIUM 3.9 mmol/L (3.5-5.1)
[2024-08-25 00:08] LABS: B-TYPE NATRIURETIC PEPTIDE 63 pg/mL (0-100)
[2024-08-25 01:00] VITALS: BP 126/81; PULSE 60; RESP 18; TEMP 98.4; O2SAT 96
[2024-08-25] MEDS ORDERED: CLON0.2T PO (01:06)
--- NOTE | 2024-08-25 05:58 | EKG ---
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
--- NOTE | 2024-08-25 08:47 | HMCIMG ---
Exam Type: CHEST 1VW Clinical Information: CHEST PAIN Comparison: None Findings: The lungs are clear of infiltrates. The heart is normal in size. The bony and soft tissue structures of the chest are unremarkable. Impression: Clear lungs.
== END 2024-08-25 01:31 | disposition home or self-care (01) ==
LOC: EDH 22:51
DX: I10 Essential (primary) hypertension (principal); E66.01 Morbid (severe) obesity due to excess calories; E78.00 Pure hypercholesterolemia, unspecified; I25.10 Atherosclerotic heart disease of native coronary artery without angina pectoris; Z79.52 Long term (current) use of systemic steroids; Z79.899 Other long term (current) drug therapy; Z88.0 Allergy status to penicillin
CPT/HCPCS: 36415; 71045; 80048; 81001; 82550; 83880; 84484; 85025; 93005; 99285

== ENCOUNTER 2024-09-07 08:46 | Emergency (ER) | payer SELFPAY ==
[~2024-09-07] VITALS: Ht 170.2 cm; Wt 127.0 kg
[~2024-09-07 08:46] MED LIST changes: +CLON0.2T PO
--- NOTE | 2024-09-07 09:13 | ERN ---
General Chief Complaint: Flu Symptoms Stated Complaint: FLU LIKE SYMPTOMS Time Seen by MD: 08:49 History of Present Illness Initial Comments 54-year-old male, history of hypertension and obesity, presents for cough, body aches, fever, sinus congestion, sore throat for three days. Subjective fevers. Some nausea without vomiting. P.o. tolerant. No diarrhea. No GI symptoms. No chest pain. Cough is dry, no production. He was noted to have elevated blood pressure here in the ER, he reports that he took 0.2 mg of oral clonidine prior to arrival. Allergies: Coded Allergies: Penicillins (Unverified Allergy, Unknown, 08/17/13) peanut (Unverified Allergy, Unknown, 09/20/20) Home Meds Active Scripts Clonidine HCl (Clonidine HCl) 0.2 Mg Tablet, 1 TAB PO BID for 30 Days, #60 TAB 0 Refills Prov:SHANIA CASTRO NP 08/25/24 Losartan/Hydrochlorothiazide (Losartan-Hctz 100-12.5 mg Tab) 100 Mg-12.5 Mg Tablet, 1 TAB PO DAILY for 30 Days, #30 TAB 0 Refills Prov:NING PETER CASH SHORTAGE INVESTIGATOR 07/12/24 Prednisone (Prednisone) 5 Mg Tab.ds.pk, 0 PO AD for 6 Days, #48 TAB 0 Refills 6 day dose pack taper Prov:ANGELICA HUNG MD 06/27/24 Naphazoline HCl/Phenir Mal (Naphcon-A Ophth Soln) 0.025 %-0.3 % Opsol, 2 DROP OD Q4HPRN PRN for drainage, #1 BOTTLE Prov:MIRNA BURGOS MD 10/11/23 Albuterol Sulfate (Ventolin Hfa/Proventil Hfa/Proair Hfa) 90 Mcg Puff, 2 PUFF IH Q4H PRN for cough/congestion, #1 INH Prov:MIRNA BURGOS MD 10/11/23 Ibuprofen (Motrin/Advil) 800 Mg Tab, 800 MG PO Q6HPRN PRN for fever/pain, #15 TAB Prov:MIRNA BURGOS MD 10/11/23 Loratadine/Pseudoephedrine (Claritin-D 24 Hour Tablet) 10 Mg-240 Mg Tab.er.24h, 1 EACH PO DAILY, #10 TAB Prov:MIRNA BURGOS MD 10/11/23 Acetaminophen (Acetaminophen) 500 Mg Tablet, 1000 MG PO Q6HPRN PRN for fever/pain, #30 TAB Prov:MIRNA BURGOS MD 10/11/23 Acetaminophen with Codeine (Acetaminophen-Cod #3 Tablet) 1 Each Tablet, 1 TAB PO Q6H PRN for SEVERE PAIN (7-10), #15 TAB Prov:COURTNEY ALEXANDER MD 11/15/22 Ibuprofen (Ibuprofen) 600 Mg Tablet, 600 MG PO Q6H PRN for PAIN, #30 TAB Prov:COURTNEY ALEXANDER MD 11/15/22 Loratadine (Loratadine) 10 Mg Tablet, 10 MG PO DAILY for 30 Days, #30 TAB Prov:ANGELICA HUNG MD 03/30/22 Pantoprazole Sodium (Protonix) 40 Mg Ectab, 40 MG PO DAILY for 30 Days, #30 TAB.EC Prov:ANGELICA HUNG MD 03/30/22 Prednisone (Prednisone) 5 Mg Tablet, 5 MG PO BID for 7 Days, #14 TAB Prov:ANGELICA HUNG MD 03/30/22 Famotidine (Pepcid) 20 Mg Tablet, 20 MG PO BID, #30 TAB Prov:ANTONINO ROBLEDO 03/16/22 Diphenhydramine HCl (Benadryl) 25 Mg Cap, 25 MG PO Q6HPRN PRN for RASH, #30 CAP Prov:ANTONINO ROBLEDO 03/16/22 Prednisone (Prednisone) 20 Mg Tablet, 1 TAB PO AD for 6 Days, #14 TAB 0 Refills TAKE 1 TAB BY MOUTH THREE TIMES PER DAY X3 DAYS, THEN TAKE 1 TAB BY MOUTH TWICE A DAY X2 DAYS, THEN TAKE 1 TAB BY MOUTH ONCE A DAY X1 DAY. Prov:ANTONINO ROBLEDO 03/16/22 Prednisone (Prednisone) 20 Mg Tablet, 1 TAB PO AD for 3 Days, #6 TAB 0 Refills TAKE 1 TAB BY MOUTH BID for up to 3 days. Stop when hives resolve Prov:VAN DAVIDSON MD 07/30/21 Past Medical History Past Medical History: Anxiety, Depression, Diabetes-Type II, High Cholesterol, Heart Disease Medical History Other: HX OF HEART ATTACK (2013) Past Surgical History: Other Surgical History Other: HEART CATH Family History Family History: HTN Social History Social History: ETOH, Lives with family ROS Dictation CONSTITUTIONAL: Body aches and chills EENT: Rhinorrhea congestion RESPIRATORY: Cough CARDIOVASCULAR: No chest pain, no edema, no palpitations, no syncope. GASTROINTESTINAL/ABDOMINAL: No abdominal pain, no constipation, no diarrhea, no nausea, no vomiting. GENITOURINARY: No abnormal discharge, no dysuria, no frequent urination, no hematuria. No complaints of pain in the genitals. MUSCULOSKELETAL: No back pain, no gout, no joint pain, no joint swelling, no muscle pain, no muscle stiffness, no neck pain. INTEGUMENTARY: No change in color, no change in hair/nails, no dryness, no lesion, no lumps, no rash. NEUROLOGICAL/PSYCH: No anxiety, not depressed, no emotional problem, no headache, no numbness, no pre-existing deficit, no history of seizures, no tremors, no weakness. HEMATOLOGIC/LYMPHATIC: Not anemic, no history of blood clots, no apparent bleeding, no bruising, glands not swollen. All Systems Negative, Except as Noted. Physical Exam Physical Exam Dictation VITAL SIGNS: Reviewed. GENERAL APPEARANCE: Alert, oriented x3, no acute distress, obese. HEAD AND FACE: Non-traumatic. EYES: PERRL, pink conjunctivas, eyelid no trauma, anterior chamber clear. EARS: Pinnas intact and no signs of trauma or erythema. Ear canals clear and no discharge. TMs no erythema. NOSE: No discharge, no bleeding. OROPHARYNX: Mouth normal, teeth no caries, tongue pink. Pharynx clear, no erythema. Tonsils no exudates, no abscesses noted. Mucous membrane moist. NECK: Supple, non-tender, no thyromegaly, no masses, no JVD, no bruits. BREAST: Deferred. CHEST: No tenderness, no crepitus, no paradoxical movement, no retractions. LUNGS: Clear, well-ventilated, symmetric, no rales, no wheezing, no rhonchi, no stridor, good breath sounds bilaterally. HEART: Regular rate, regular rhythm, no murmur, no gallops. VASCULAR: No peripheral edema. ABDOMEN: Soft, positive bowel sounds, nondistended, no guarding, nontender, no rebound, no masses no hepatomegaly, no splenomegaly, no Caldwell's sign, no hernias. RECTAL: Deferred. GENITAL: Deferred. NEUROLOGICAL: Normal speech, gross motor function intact, gross sensory function intact. MUSCULOSKELETAL: Neck nontender, full range of motion, back nontender, full range of motion. EXTREMITIES: Nontender, full range of motion. SKIN: Color pink, dry, no turgor, no rash, no lacerations, no abrasions, no contusions. LYMPHATICS: Deferred. Results Laboratory and Microbiology Lab and Micro Result Laboratory Tests Test 09/07/24 08:55 Influenza Type A Antigen Negative For Type A Influenza Type B Antigen Negative For Type B SARS-CoV-2, RNA, NAAT NEGATIVE SARS CoV-2 MDM CC: Flu-like illness Historian: Patient Comorbidities: Obesity and hypertension Limitations by social determinants of health: Uninsured Differential diagnosis: Flu, SARS, pneumonia, viral URI, other. Vital signs: Hypertensive initially, this improved in the ER. He was self treated before coming in the hospital. Other vital signs stable. Oxygen saturation stable. Flu and SARS negative. CXR ( independently ordered and interpreted by me ): No focal infiltrates cardiomegaly or pleural effusions or any major abnormalities. Patient was symptoms most consistent with a viral upper respiratory infection. Likely viral. There is no signs of SIRS or sepsis. No signs of dehydration or respiratory distress. We will recommend [id number] cough and cold medications and PCP follow up as needed. ED Course Orders Procedure Category Date Status Time Influenza Type A & B, LAB 09/07/24 Complete Rapid 08:54 Covid Rna Naat LAB 09/07/24 Complete 08:54 Chest 1vw RAD 09/07/24 Resulted 08:56 Vital Signs Date Time Temp Pulse Resp B/P (MAP) Pulse Ox O2 Delivery O2 Flow Rate FiO2 09/07/24 08:49 98.8 94 18 202/114 95 Room Air DX & DISP Disposition: Discharge Departure Impression: Primary Impression: Viral URI Additional Impression: Hypertension Condition: Stable Additional Instructions: Your symptoms are consistent with a viral upper respiratory infection. This type of infection does not require antibiotics and will often clear on its own. Your flu and COVID swabs are negative. Your chest x-ray is clear. I recommend the use [id number] cough and cold medications. I recommend DayQuil and Sudafed. Make sure that you are taking a Tylenol or ibuprofen for fever control. You can also use cough drops as needed. Be sure to drink plenty of liquids. Get plenty of rest. Eat a diet full of nutrients, including plenty of fruits and vegetables. Your blood pressure was elevated here in the ER. Be sure to take your home blood pressure medications as already prescribed. Please follow up with the primary doctor if her symptoms do not improve in next few days. Return to the emergency department as needed. Referrals: NONE (PCP) BRIANA WEATHERS DO Sep 07, 2024 09:13
[2024-09-07 09:20] LABS: SARS-CoV-2, RNA, NAAT NEGATIVE SARS CoV-2 (NEGATIVE)
[2024-09-07 09:21] LABS: INFLUENZA TYPE A Negative For Type A (NEGATIVE); INFLUENZA TYPE B Negative For Type B (NEGATIVE)
--- NOTE | 2024-09-07 09:25 | HMCIMG ---
CHEST 1VW HISTORY: Cough COMPARISON: 08/24/2024 FINDINGS: A frontal projection of the chest was obtained. There are bilateral pulmonary infiltrates suggestive of pulmonary vascular congestion with possible superimposed pneumonitis. The heart is borderline enlarged. Degenerative changes are seen. No evidence of aortic calcification is seen. IMPRESSION: 1. Bilateral pulmonary infiltrates are seen suggestive of pulmonary vascular congestion with possible superimposed pneumonitis.
[2024-09-07 09:41] VITALS: BP 180/100; PULSE 90; RESP 18; TEMP 98.8; O2SAT 95
== END 2024-09-07 09:46 | disposition home or self-care (01) ==
LOC: EDH 08:46
DX: J06.9 Acute upper respiratory infection, unspecified (principal); B97.89 Other viral agents as the cause of diseases classified elsewhere; I11.9 Hypertensive heart disease without heart failure; E11.9 Type 2 diabetes mellitus without complications; E66.9 Obesity, unspecified; E78.00 Pure hypercholesterolemia, unspecified; I25.2 Old myocardial infarction; Z20.822 Contact with and (suspected) exposure to COVID-19; Z79.52 Long term (current) use of systemic steroids; Z79.899 Other long term (current) drug therapy; Z88.0 Allergy status to penicillin; Z98.890 Other specified postprocedural states
CPT/HCPCS: 71045; 87635; 87804; 99284

== ENCOUNTER 2024-09-10 17:10 | Emergency (ER) | payer SELFPAY ==
[~2024-09-10] VITALS: Ht 170.2 cm; Wt 127.0 kg
[2024-09-10 17:48] LABS: RAPID GROUP A STREP negative (NEGATIVE)
[2024-09-10 17:55] LABS: SARS-CoV-2, RNA, NAAT NEGATIVE SARS CoV-2 (NEGATIVE)
[2024-09-10 17:59] LABS: INFLUENZA TYPE A Negative For Type A (NEGATIVE)
--- NOTE | 2024-09-10 18:05 | EKG ---
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
[2024-09-10 18:09] LABS: INFLUENZA TYPE B Positive For Type B (NEGATIVE)
[2024-09-10 18:29] LABS: BASOPHILS # (AUTO) 0.02 K/uL (0.00-0.20); BASOPHILS % (AUTO) 0.3 % (0.0-5.0); EOSINOPHILS # (AUTO) 0.04 K/uL (0.00-0.70); EOSINOPHILS % (AUTO) 0.6 % (0.0-8.0); IMMATURE GRANULOCYTE ABSOLUTE 0.02 K/uL (0-1); LYMPHOCYTES # (AUTO) 0.4 K/uL (1.0-4.8); LYMPHOCYTES % (AUTO) 5.8 % (21.0-51.0); MEAN CORPUSCULAR HEMOGLOBIN 32.2 pg (27.0-33.0); MEAN CORPUSCULAR HGB CONC 32.5 g/dL (32.0-36.0); MONOCYTES # (AUTO) 0.5 K/uL (0.1-1.0); MONOCYTES % (AUTO) 8.3 % (3.0-13.0); NEUTROPHILS # (AUTO) 5.4 K/uL (1.8-7.7); NEUTROPHILS % (AUTO) 84.7 % (40.0-77.0); PLATELET COUNT (AUTO) 188 K/uL (130-400); RED BLOOD CELL COUNT(AUTO) 4.85 MIL/uL (4.50-6.20); RED CELL DISTRIBUTION WIDTH 13.2 % (11.0-15.5); WHITE BLOOD COUNT (AUTO) 6.4 K/uL (4.8-10.8)
[2024-09-10 18:39] LABS: CREATININE 1.1 mg/dL (0.5-1.3); POTASSIUM 3.9 mmol/L (3.5-5.1)
--- NOTE | 2024-09-10 18:46 | HMCIMG ---
PORTABLE CHEST RADIOGRAPH INDICATION: sob COMPARISON: 09/07/2024 FINDINGS: Heart size is normal. The pulmonary vascularity and paul appear normal. No abnormal pulmonary parenchymal opacity or consolidation identified. No significant pleural effusion noted. No pneumothorax detected. IMPRESSION: No radiographic evidence for any acute cardiopulmonary process.
[2024-09-10] MEDS: IpraTROPium/alBUTERol SULFATE 3 ML SOLUTION IH ONE (19:19)
[2024-09-10 19:21] VITALS: PULSE 88; RESP 20
[2024-09-10] MEDS: 0.9%NACL 1000ML 1,000 ML IV ONE (19:27)
[2024-09-10] MEDS: OSELTAMIVIR PHOSPHATE 75 MG CAP PO ONE (19:27)
[2024-09-10] MEDS: Solu-medROL 125MG VIAL IVP ONE (19:27)
[2024-09-10] MEDS: acetaMINOPHEN 500 MG TABLET PO ONE (19:28)
[2024-09-10 19:55] LABS: B-TYPE NATRIURETIC PEPTIDE 31 pg/mL (0-100)
[2024-09-10] MEDS ORDERED: ALBUHFA IH (20:10)
[2024-09-10] MEDS ORDERED: OSEL75 PO (20:10)
--- NOTE | 2024-09-10 20:11 | ERN ---
ED Note History of Present Illness Stated Complaint: CHILLS, WEAK, BODYACHE Chief Complaint: Cough Time Seen by MD: 17:12 Time Seen by Midlevel: 17:12 Dictation: The patient is a 54-year-old male with a history of hypertension, diabetes who presents to the emergency department with complaints of fever, productive cough, diarrhea, body aches, shortness of breath with the exertion onset Tuesday. Denies any chest pain or vomiting. Allergies: Coded Allergies: Penicillins (Unverified Allergy, Unknown, 08/17/13) peanut (Unverified Allergy, Unknown, 09/20/20) Home Meds Active Scripts Clonidine HCl (Clonidine HCl) 0.2 Mg Tablet, 1 TAB PO BID for 30 Days, #60 TAB 0 Refills Prov:SHANIA CASTRO NP 08/25/24 Losartan/Hydrochlorothiazide (Losartan-Hctz 100-12.5 mg Tab) 100 Mg-12.5 Mg Tablet, 1 TAB PO DAILY for 30 Days, #30 TAB 0 Refills Prov:NING PETERP 07/12/24 Prednisone (Prednisone) 5 Mg Tab.ds.pk, 0 PO AD for 6 Days, #48 TAB 0 Refills 6 day dose pack taper Prov:ANGELICA HUNG MD 06/27/24 Naphazoline HCl/Phenir Mal (Naphcon-A Ophth Soln) 0.025 %-0.3 % Opsol, 2 DROP OD Q4HPRN PRN for drainage, #1 BOTTLE Prov:MIRNA BURGOS MD 10/11/23 Albuterol Sulfate (Ventolin Hfa/Proventil Hfa/Proair Hfa) 90 Mcg Puff, 2 PUFF IH Q4H PRN for cough/congestion, #1 INH Prov:MIRNA BURGOS MD 10/11/23 Ibuprofen (Motrin/Advil) 800 Mg Tab, 800 MG PO Q6HPRN PRN for fever/pain, #15 TAB Prov:MIRNA BURGOS MD 10/11/23 Loratadine/Pseudoephedrine (Claritin-D 24 Hour Tablet) 10 Mg-240 Mg Tab.er.24h, 1 EACH PO DAILY, #10 TAB Prov:MIRNA BURGOS MD 10/11/23 Acetaminophen (Acetaminophen) 500 Mg Tablet, 1000 MG PO Q6HPRN PRN for fever/pain, #30 TAB Prov:MIRNA BURGOS MD 10/11/23 Acetaminophen with Codeine (Acetaminophen-Cod #3 Tablet) 1 Each Tablet, 1 TAB PO Q6H PRN for SEVERE PAIN (7-10), #15 TAB Prov:COURTNEY ALEXANDER MD 11/15/22 Ibuprofen (Ibuprofen) 600 Mg Tablet, 600 MG PO Q6H PRN for PAIN, #30 TAB Prov:COURTNEY ALEXANDER MD 11/15/22 Loratadine (Loratadine) 10 Mg Tablet, 10 MG PO DAILY for 30 Days, #30 TAB Prov:ANGELICA HUNG MD 03/30/22 Pantoprazole Sodium (Protonix) 40 Mg Ectab, 40 MG PO DAILY for 30 Days, #30 TAB.EC Prov:ANGELICA HUNG MD 03/30/22 Prednisone (Prednisone) 5 Mg Tablet, 5 MG PO BID for 7 Days, #14 TAB Prov:ANGELICA HUNG MD 03/30/22 Famotidine (Pepcid) 20 Mg Tablet, 20 MG PO BID, #30 TAB Prov:ANTONINO ROBLEDO 03/16/22 Diphenhydramine HCl (Benadryl) 25 Mg Cap, 25 MG PO Q6HPRN PRN for RASH, #30 CAP Prov:ANTONINO ROBLEDO 03/16/22 Prednisone (Prednisone) 20 Mg Tablet, 1 TAB PO AD for 6 Days, #14 TAB 0 Refills TAKE 1 TAB BY MOUTH THREE TIMES PER DAY X3 DAYS, THEN TAKE 1 TAB BY MOUTH TWICE A DAY X2 DAYS, THEN TAKE 1 TAB BY MOUTH ONCE A DAY X1 DAY. Prov:ANTONINO ROBLEDO 03/16/22 Prednisone (Prednisone) 20 Mg Tablet, 1 TAB PO AD for 3 Days, #6 TAB 0 Refills TAKE 1 TAB BY MOUTH BID for up to 3 days. Stop when hives resolve Prov:VAN DAVIDSON MD 07/30/21 Past Medical History Past Medical History: Anxiety, Depression, Diabetes-Type II, High Cholesterol, Heart Disease, Hypertension, NM Additional Past Medical Hx: HX OF HEART ATTACK (2013) Surgical History: Other Surgical History Other: HEART CATH Family History: HTN Social History: ETOH, Lives with family RN Note Reviewed/Agreed w/PFSH: Yes Review of System Dictation Constitutional: Negative for chills, and weight loss positive for fever Eyes: Negative for injury, pain,redness, and discharge ENT: Negative for injury,pain or swelling Cardiovascular: Negative for chest pain, palpitations, and edema Respiratory: Negative for and wheezing, positive for shortness of breath, cough Abdomen/GI: Negative for abdominal pain, nausea, vomiting,, and constipation positive for diarrhea Back: Negative for injury and pain : Negative for injury, bleeding and discharge MS/Extremity: Negative for injury and deformity Skin: Negative for rash, and discoloration Neuro: Negative for headache, weakness, numbness, tingling, and seizure Psych: Negative for suicide ideation, homicidal ideation, and hallucinations Initial Vital Sign VS Vital Signs Date Time Temp Pulse Resp B/P (MAP) Pulse Ox O2 Delivery O2 Flow Rate FiO2 09/10/24 17:13 102.7 103 18 220/114 97 Room Air 0 09/10/24 19:14 21 Physical Exam Dictation Vital Signs reviewed General Appearance: Alert, oriented x 3, no acute distress, well developed, nourished. Obese Head and Face: non-traumatic. Eyes: PERRL, pink conjunctivas, eyelid no trauma, anterior chamber with arcus senilis. Ears: Pinnas intact and no signs of trauma or erythema ear canals clear and no discharge TM no erythema Nose: No discharge, no bleeding. Oropharynx: Mouth normal, tongue pink. pharynx clear,no erythema, tonsils no exudates, no abscesses noted, mucous membrane moist Neck: Supple, non-tender, no thyromegaly, no masses, no JVD, no bruits Breast:Deferred Chest:No tenderness, no crepitus, no paradoxical movement, no retractions Lungs:Clear, well-ventilated, symmetric, no rales, no wheezing, no rhonchi, no stridor, good breath sounds bilaterally Heart: Regular rate, regular rhythm, no murmur, no gallops Vascular: no peripheral edema, Abdomen: Soft, positive bowel sounds, nondistended, no guarding, nontender, no rebound, no masses no hepatomegaly, no splenomegaly, no Caldwell's sign, no hernias. Rectal: Deferred Genital: Deferred Neurological: Normal speech, motor function intact, sensory function intact Musculoskeletal: Neck nontender, full range of motion, back nontender, full range of motion, Extremities: nontender, full range of motion Skin: Color pink, dry, no turgor, no rash, no lacerations, no abrasions, no contusions. Lymphatic: Deferred Results (Laboratory/Radiology) Laboratory/Radiology Laboratory Tests Test 09/10/24 17:12 09/10/24 18:08 Influenza Type A Antigen Negative For Type A Influenza Type B Antigen Positive For Type B SARS-CoV-2, RNA, NAAT NEGATIVE SARS CoV-2 Group A Streptococcus Rapid negative (NEGATIVE) White Blood Count 6.4 K/uL (4.8-10.8) Red Blood Count 4.85 MIL/uL (4.50-6.20) Hemoglobin 15.6 g/dL (14.0-18.0) Hematocrit 48.0 % (42-54) Mean Corpuscular Volume 99.0 fL (79-99) Mean Corpuscular Hemoglobin 32.2 pg (27.0-33.0) Mean Corpuscular Hemoglobin Concent 32.5 g/dL (32.0-36.0) Red Cell Distribution Width 13.2 % (11.0-15.5) Platelet Count 188 K/uL (130-400) Mean Platelet Volume 9.7 fL (7.5-10.5) Immature Granulocyte % (Auto) 0.3 % (0-1) Neutrophils (%) (Auto) 84.7 % (40.0-77.0) H Lymphocytes (%) (Auto) 5.8 % (21.0-51.0) L Monocytes (%) (Auto) 8.3 % (3.0-13.0) Eosinophils (%) (Auto) 0.6 % (0.0-8.0) Basophils (%) (Auto) 0.3 % (0.0-5.0) Neutrophils # (Auto) 5.4 K/uL (1.8-7.7) Lymphocytes # (Auto) 0.4 K/uL (1.0-4.8) L Monocytes # (Auto) 0.5 K/uL (0.1-1.0) Eosinophils # (Auto) 0.04 K/uL (0.00-0.70) Basophils # (Auto) 0.02 K/uL (0.00-0.20) Absolute Immature Granulocyte (auto 0.02 K/uL (0-1) Nucleated Red Blood Cells 0.0 % (0.0-0.19) White Cell Morphology Comment See comments Sodium Level 137 mmol/L (136-145) Potassium Level 3.9 mmol/L (3.5-5.1) Chloride Level 101 mmol/L (101-111) Carbon Dioxide Level 32 mmol/L (21-32) Blood Urea Nitrogen 7 mg/dL (7-18) Creatinine 1.1 mg/dL (0.5-1.3) Glomerular Filtration Rate Calc 79 mL/min (>90) Random Glucose 94 mg/dL (70-105) Total Calcium 8.7 mg/dL (8.5-10.1) Total Creatine Kinase 371 U/L (21-232) #H Troponin I High Sensitivity 18 ng/L (4-75) B-Type Natriuretic Peptide 31 pg/mL (0-100) Labs Reviewed?: Yes EKG: (+) rhythm (Sinus rhythm) EKG Comment: Date:09/10/24 Time:1758 Ventricular rate:89 [place] interval:146 QRS duration:93 QT/QTc:342 EKG interpretation: Sinus rhythm Reviewed by ED Attending no STEMI ED Course ED Course Orders Procedure Category Date Status Time Covid Rna Naat LAB 09/10/24 Complete 17:17 Influenza Type A & B, LAB 09/10/24 Complete Rapid 17:17 Rapid (Group A Strep) LAB 09/10/24 Complete 17:17 Cbc With Differential LAB 09/10/24 Complete 17:43 B-Type Natriuretic LAB 09/10/24 Complete Peptide 17:43 Chest 1vw RAD 09/10/24 Resulted 17:43 0.9%Nacl 1000ml (Ns PHA 09/10/24 Complete 1000ml) 18:00 Basic Metabolic Panel LAB 09/10/24 Complete 17:43 Acetaminophen 500mg PHA 09/10/24 Complete Tab (Tylenol 500mg T 18:00 Creatine Kinase, Total LAB 09/10/24 Complete 17:43 Troponin I High LAB 09/10/24 Complete Sensitivity 17:43 12 Lead Ekg Tracing- EKG 09/10/24 Resulted Technical 17:43 Methylprednisolone PHA 09/10/24 Complete Succ 125mg (Solu-Medr 18:00 Ipratropium/Albuterol PHA 09/10/24 Complete Neb (Duoneb) 18:00 Oseltamivir Phosphate PHA 09/10/24 Complete (Tamiflu) 19:00 Current Medications Medications (Trade) Dose Ordered Sig/Grecia Route PRN Reason Start Time Stop Time Status Last Admin Dose Admin Acetaminophen (TYLenol 500MG TAB) 1,000 mg ONCE ONCE PO 09/10/24 18:00 09/10/24 18:01 DC 09/10/24 19:28 Albuterol (DUOneb) 1 UDVIAL ONCE ONCE IH 09/10/24 18:00 09/10/24 18:01 DC 09/10/24 19:19 Methylprednisolone Sodium Succinate (Solu-medROL 125MG) 125 mg ONCE ONCE IVP 09/10/24 18:00 09/10/24 18:01 DC 09/10/24 19:27 Oseltamivir Phosphate (Tamiflu) 75 mg ONCE ONCE PO 09/10/24 19:00 09/10/24 19:01 DC 09/10/24 19:27 Sodium Chloride 1,000 ml @ 0 mls/hr ONCE ONCE IV 09/10/24 18:00 09/10/24 18:01 DC 09/10/24 19:27 Vital Signs Date Time Temp Pulse Resp B/P (MAP) Pulse Ox O2 Delivery O2 Flow Rate FiO2 09/10/24 19:28 98.6 09/10/24 19:21 88 20 09/10/24 19:14 98.6 87 20 120/66 100 Room Air* 0 21 09/10/24 17:13 102.7 103 18 220/114 97 Room Air 0 Medical Decision Making MDM The patient is a 54-year-old male with a history of hypertension, diabetes who presents to the emergency department with complaints of fever, productive cough, diarrhea, body aches, shortness of breath with the exertion onset Tuesday. Denies any chest pain or vomiting. CBC showed no leukocytosis, no anemia, chemistry showed no electrolyte imbalance, slightly elevated CK level patient was giving a L of fluids in ER, negative troponin, serology positive for influenza B. Chest x-ray showed a no acute pathology. Patient in no acute distress, we will be discharged to follow up with PCP and given Tamiflu for influenza B. Differential diagnosis: Pneumonia, pneumothorax, ACS, dehydration, upper respiratory infection, rhabdomyolysis Need for hospitalization: Patient does not meet criteria for hospitalization. There are no social concerns with this patient. DX & DISP Disposition: Discharge Departure Impression: Primary Impression: Influenza B Additional Impressions: Elevated CK, Viral illness Condition: Stable Scripts Albuterol Sulfate (Ventolin Hfa/Proventil Hfa/Proair Hfa) 90 Mcg Puff 1-2 PUFF IH Q4H PRN for SHORTNESS OF BREATH for 5 Days, #1 INH 0 Refills PHARMACY TO DISPENSE 1 INHALER FOR USE Prov: NING PETER 09/10/24 Oseltamivir Phosphate (Tamiflu) 75 Mg Cap 75 MG PO BID for 5 Days, #10 CAP Prov: NING PETER 09/10/24 Additional Instructions: Please take medications as prescribed. Continue oral hydration at home. May take Tylenol as needed for fevers. If symptoms worsen please return to ER. FOLLOW-UP WITH PRIMARY CARE PROVIDER IN 1 TO 2 DAYS. TAKE MEDICATIONS DIRECTED HERE IN THE EMERGENCY ROOM. OKAY TO CONTINUE HOME MEDICATIONS UNLESS OTHERWISE DISCUSSED DURING YOUR VISIT IN THE EMERGENCY ROOM TODAY. RETURN TO [facility] EM[facility]GENCY ROOM IF SYMPTOMS WORSEN OR IF THERE IS NO IMPROVEMENT. CALL 911 IF YOU NEED IMMEDIATE ASSISTANCE. TAKE TYLENOL OR MOTRIN [id number] NEEDED AND IF NO CONTRAINDICATIONS ARE PRESENT. INCREASE ORAL HYDRATION. A WOUND CULTURE OR URINE CULTURE WAS ORDERED HERE IN THE EMERGENCY ROOM DEPARTMENT PLEASE FOLLOW-UP WITH PRIMARY CARE PROVIDER AND ADVISE THEM TO GET REPEAT PORTS FROM OUR FACILITY. IF YOU HAD ANY BIBI WRAP/SPLINTS THAT WERE APPLIED HERE, PLEASE DO NOT REMOVE THEM UNTIL YOU SEE YOUR PRIMARY CARE OR SPECIALTY. Referrals: NONE (PCP) Time of Disposition: 20:08 I have reviewed the case, and I agree with, Diagnosis and Plan NING PETER Sep 10, 2024 20:11
[2024-09-10 20:12] VITALS: TEMP 98.9
[2024-09-10 20:13] VITALS: BP 122/72; PULSE 80; RESP 20; TEMP 98.9; O2SAT 100
== END 2024-09-10 20:18 | disposition home or self-care (01) ==
LOC: EDH 17:10
DX: J10.1 Influenza due to other identified influenza virus with other respiratory manifestations (principal); R74.8 Abnormal levels of other serum enzymes; B34.9 Viral infection, unspecified; E11.9 Type 2 diabetes mellitus without complications; E78.00 Pure hypercholesterolemia, unspecified; I10 Essential (primary) hypertension; Z79.52 Long term (current) use of systemic steroids; Z79.899 Other long term (current) drug therapy; Z88.0 Allergy status to penicillin; Z20.822 Contact with and (suspected) exposure to COVID-19
CPT/HCPCS: 99285; 96374; 71045; 87635; 82550; 84484; 80048; 83880; 85025; 87880; 87804 ×2; 36415; 93005; 94640; J2919; J7030

== ENCOUNTER 2025-03-27 08:49 | Emergency (ER) | payer SELFPAY ==
[~2025-03-27] VITALS: Ht 170.2 cm; Wt 127.0 kg
[~2025-03-27 08:49] MED LIST changes: +IBUP-1492 PO; -IBUP-2070 PO; +OSEL75 PO
--- NOTE | 2025-03-27 09:13 | ERN ---
General Chief Complaint: Congestion Stated Complaint: COUGH AND CONGESTION Time Seen by MD: 08:53 History of Present Illness Initial Comments This patient is 54-year-old male who presented to ED with cough, congestion, itchy eyes, malaise and chills. Patient started having flu-like symptoms since Tuesday morning, he says someone from his office tested positive for COVID. He is alert, awake, oriented and denies chest pain, palpitation, throat pain. Allergies: Coded Allergies: Penicillins (Unverified Allergy, Unknown, 08/17/13) peanut (Unverified Allergy, Unknown, 09/20/20) Home Meds Active Scripts Albuterol Sulfate (Ventolin Hfa/Proventil Hfa/Proair Hfa) 90 Mcg Puff, 1-2 PUFF IH Q4H PRN for SHORTNESS OF BREATH for 5 Days, #1 INH 0 Refills PHARMACY TO DISPENSE 1 INHALER FOR USE Prov:NING PETER [facility] 09/10/24 Oseltamivir Phosphate (Tamiflu) 75 Mg Cap, 75 MG PO BID for 5 Days, #10 CAP Prov:NING PETER [facility] 09/10/24 Clonidine HCl (Clonidine HCl) 0.2 Mg Tablet, 1 TAB PO BID for 30 Days, #60 TAB 0 Refills Prov:SHANIA CASTRO NP 08/25/24 Losartan/Hydrochlorothiazide (Losartan-Hctz 100-12.5 mg Tab) 100 Mg-12.5 Mg Tablet, 1 TAB PO DAILY for 30 Days, #30 TAB 0 Refills Prov:NING PETER [facility] 07/12/24 Prednisone (Prednisone) 5 Mg Tab.ds.pk, 0 PO AD for 6 Days, #48 TAB 0 Refills 6 day dose pack taper Prov:ANGELICA HUNG MD 06/27/24 Naphazoline HCl/Phenir Mal (Naphcon-A Ophth Soln) 0.025 %-0.3 % Opsol, 2 DROP OD Q4HPRN PRN for drainage, #1 BOTTLE Prov:MIRNA BURGOS MD 10/11/23 Albuterol Sulfate (Ventolin Hfa/Proventil Hfa/Proair Hfa) 90 Mcg Puff, 2 PUFF IH Q4H PRN for cough/congestion, #1 INH Prov:MIRNA BURGOS MD 10/11/23 Ibuprofen (Motrin/Advil) 800 Mg Tab, 800 MG PO Q6HPRN PRN for fever/pain, #15 TAB Prov:MIRNA BURGOS MD 10/11/23 Loratadine/Pseudoephedrine (Claritin-D 24 Hour Tablet) 10 Mg-240 Mg Tab.er.24h, 1 EACH PO DAILY, #10 TAB Prov:MIRNA BURGOS MD 10/11/23 Acetaminophen (Acetaminophen) 500 Mg Tablet, 1000 MG PO Q6HPRN PRN for fever/pain, #30 TAB Prov:MIRNA BURGOS MD 10/11/23 Acetaminophen with Codeine (Acetaminophen-Cod #3 Tablet) 1 Each Tablet, 1 TAB PO Q6H PRN for SEVERE PAIN (7-10), #15 TAB Prov:COURTNEY ALEXANDER MD 11/15/22 Ibuprofen (Ibuprofen) 600 Mg Tablet, 600 MG PO Q6H PRN for PAIN, #30 TAB Prov:COURTNEY ALEXANDER MD 11/15/22 Loratadine (Loratadine) 10 Mg Tablet, 10 MG PO DAILY for 30 Days, #30 TAB Prov:ANGELICA HUNG MD 03/30/22 Pantoprazole Sodium (Protonix) 40 Mg Ectab, 40 MG PO DAILY for 30 Days, #30 TAB.EC Prov:ANGELICA HUNG MD 03/30/22 Prednisone (Prednisone) 5 Mg Tablet, 5 MG PO BID for 7 Days, #14 TAB Prov:ANGELICA HUNG MD 03/30/22 Famotidine (Pepcid) 20 Mg Tablet, 20 MG PO BID, #30 TAB Prov:ANTONINO ROBLEDO 03/16/22 Diphenhydramine HCl (Benadryl) 25 Mg Cap, 25 MG PO Q6HPRN PRN for RASH, #30 CAP Prov:ANTONINO ROBLEDO 03/16/22 Prednisone (Prednisone) 20 Mg Tablet, 1 TAB PO AD for 6 Days, #14 TAB 0 Refills TAKE 1 TAB BY MOUTH THREE TIMES PER DAY X3 DAYS, THEN TAKE 1 TAB BY MOUTH TWICE A DAY X2 DAYS, THEN TAKE 1 TAB BY MOUTH ONCE A DAY X1 DAY. Prov:ANTONINO ROBLEDO 03/16/22 Prednisone (Prednisone) 20 Mg Tablet, 1 TAB PO AD for 3 Days, #6 TAB 0 Refills TAKE 1 TAB BY MOUTH BID for up to 3 days. Stop when hives resolve Prov:VAN DAVIDSON MD 07/30/21 Past Medical History Past Medical History: Diabetes-Type II, High Cholesterol, Hypertension Medical History Other: HX OF HEART ATTACK (2014) Past Surgical History: Other Surgical History Other: HEART CATH Family History Family History: HTN Social History Social History: ETOH, Lives with family Constitutional: (+) chills, (+) malaise, (+) weakness; (-) diaphoresis, (-) fever, (-) other documentation EENTM: (+) eye pain, (+) tearing; (-) blurred vision, (-) double vision, (-) ear pain, (-) ear discharge, (-) nose pain, (-) nose congestion, (-) throat pain, (-) Throat swelling, (-) mouth pain, (-) tooth pain, (-) mouth swelling, (-) other documentation Respiratory: (+) cough; (-) orthopnea, (-) short of breath, (-) stridor, (-) wheezing, (-) other documentation Cardiovascular: (-) chest pain, (-) edema, (-) palpitations, (-) syncope, (-) dyspnea on exertion, (-) other documentation Physical Exam General Appearance: (+) no apparent distress; (-) apparent distress, (-) mild distress, (-) moderate distress, (-) severe distress, (-) thin, (-) obese, (-) combative, (-) cachetic, (-) anxious, (-) other documentation Orientation: (+) alert, (+) oriented x 3; (-) disoriented, (-) other documentation Head/Face Trauma: No Respiratory: (+) well ventilated Heart: (+) regular, (+) no gallop Results Laboratory and Microbiology Lab and Micro Result Laboratory Tests Test 03/27/25 09:00 SARS-CoV-2, RNA, NAAT POSITIVE SARS CoV-2 Labs Reviewed?: Yes MDM MDM: DIFFERENTIAL DIAGNOSIS: Upper respiratory tract infection/acute sinusitis RATIONALE: TESTS CONSIDERED AND ORDERED SECONDARY TO SHARED DECISION MAKING INCLUDE: PREVIOUS OUTSIDE RECORDS REVIEWED: OLD ER VISITS. RISK OF COMPLICATION AND/OR MORBIDITY OR MORTALITY OF PATIENT MANAGEMENT: NONE MEDICATIONS-PER MEDICATION RECONCILIATION NEED FOR HOSPITALIZATION: PATIENT DOES NOT MEET CRITERIA FOR HOSPITALIZATION. NEED FOR EMERGENCY MAJOR/MINOR SURGERY: NO PATIENT IS A 54-YEAR-OLD GENTLEMAN COMING IN AFTER BEING EXPOSED TO COVID WANTING TO BE EVALUATED. PATIENT HAS HAD MILD URI SYMPTOMS. PATIENT WILL BE DISCHARGED IN STABLE CONDITION WITH A DIAGNOSIS OF COVID-19 I DID ADVISED HIM APPROPRIATE FOLLOW UP WITH PCP FOR LONG-TERM MANAGEMENT. ED Course Orders Procedure Category Date Status Time Covid Rna Naat LAB 03/27/25 Complete 08:59 Dexamethasone 4mg/Ml PHA 03/27/25 Transmitted 1ml Vial (Dexametha 09:30 Vital Signs Date Time Temp Pulse Resp B/P (MAP) Pulse Ox O2 Delivery O2 Flow Rate FiO2 03/27/25 09:12 98.2 74 20 173/108 99 Room Air* 0 21 03/27/25 08:53 97.3 78 18 190/107 98 Room Air* 0 21 03/27/25 08:53 97.3 78 18 190/107 98 Room Air 0 DX & DISP Disposition: Discharge Departure Impression: Primary Impression: COVID-19 Condition: Stable Scripts Molnupiravir (Molnupiravir (Eua)) 200 Mg Capsule 4 CAP PO BID for 5 Days, #40 CAP 0 Refills Prov: ANGELICA HUNG MD 03/27/25 Fluticasone Propionate (Flonase Nasal [place]) 50 Mcg/Actuation [place] 2 SPRAY NS DAILY, #16 GM 0 Refills Prov: ANGELICA HUNG MD 03/27/25 Additional Instructions: FOLLOW-UP WITH PRIMARY CARE PROVIDER IN 1 TO 2 DAYS. TAKE MEDICATIONS DIRECTED HERE IN THE EMERGENCY ROOM. OKAY TO CONTINUE HOME MEDICATIONS UNLESS OTHERWISE DISCUSSED DURING YOUR VISIT IN THE EMERGENCY ROOM TODAY. RETURN TO YOUR NEAREST EMERGENCY ROOM IF SYMPTOMS WORSEN OR IF THERE IS NO IMPROVEMENT. CALL 911 IF YOU NEED IMMEDIATE ASSISTANCE. TAKE TYLENOL [id number] NEEDED AND IF NO CONTRAINDICATIONS ARE PRESENT. INCREASE ORAL HYDRATION. A WOUND CULTURE OR URINE CULTURE WAS ORDERED HERE IN THE EMERGENCY ROOM DEPARTMENT PLEASE FOLLOW-UP WITH PRIMARY CARE PROVIDER AND ADVISE THEM TO GET REPORTS FROM OUR FACILITY. IF YOU HAD ANY BIBI WRAP/SPLINTS THAT WERE APPLIED HERE, PLEASE DO NOT REMOVE THEM UNTIL YOU SEE YOUR PRIMARY CARE OR SPECIALTY. REFERRALS: Referrals: SELF,REFERRAL (PCP) ANH WILLSON MD Time of Disposition: 09:28 ROSALIO OLSEN MD Mar 27, 2025 09:13 ANGELICA HUNG MD Mar 27, 2025 09:29
[2025-03-27 09:23] LABS: SARS-CoV-2, RNA, NAAT POSITIVE SARS CoV-2 (NEGATIVE)
[2025-03-27] MEDS ORDERED: MOLN200C PO (09:29)
[2025-03-27] MEDS ORDERED: FLUT16H NS (09:29)
[2025-03-27 10:12] VITALS: BP 166/100; PULSE 68; RESP 20; TEMP 98; O2SAT 98
== END 2025-03-27 10:16 | disposition home or self-care (01) ==
LOC: EDH 08:49
DX: U07.1 COVID-19 (principal); E11.9 Type 2 diabetes mellitus without complications; E78.00 Pure hypercholesterolemia, unspecified; I10 Essential (primary) hypertension; Z79.52 Long term (current) use of systemic steroids; Z79.899 Other long term (current) drug therapy; Z88.0 Allergy status to penicillin; Z91.010 Allergy to peanuts
CPT/HCPCS: 99283; 87635; 96372; J1100